=== PATIENT | male | born 1940 | race Caucasian/White ===

== ENCOUNTER 2020-05-19 16:30 | Inpatient (IN) | payer MEDICARE, MEDICAID ==
--- NOTE | 2020-05-19 17:05 | EDM.PDOC ---
<Claudio Be - Last Filed: 05/19/20 17:05> ED HPI GENERAL MEDICAL PROBLEM - General Chief Complaint: Upper Extremity Injury/Pain Stated Complaint: MED[facility] Time Seen by Provider: 05/19/20 16:52 - Related Data Allergies Allergy/AdvReac Type Severity Reaction Status Date / Time No Known Allergies Allergy Verified 05/19/20 16:39 Home Meds: Home Meds NK [No Known Home Meds] 05/19/20 [History] Past Medical History HEENT History: Reports: Hard of Hearing Cardiovascular History: Reports: Hypertension Respiratory History: Reports: Asthma, COPD Musculoskeletal History: Reports: Fracture - Past Surgical History GI Surgical History: Reports: Hernia Repair/Other Social & Family History - Tobacco Use Smoking Status *Q: Current Every Day Smoker Years of Tobacco use: 1 Packs/Tins Daily: 1 - Caffeine Use Caffeine Use: Reports: Coffee - Alcohol Use Days Per Week of Alcohol Use: 7 Number of Drinks Per Day: 4 Total Drinks Per Week: 28 - Recreational Drug Use Recreational Drug Use: No Departure - Departure Disposition: Admitted As Inpatient 68 Clinical Impression: Humeral fracture, Lactic acidosis, Failure to thrive - Discharge Information Referrals: Clark Palm MD [Primary Care Provider] - Forms: ED Department Discharge Sepsis Event Note (ED) - Evaluation Sepsis Screening Result: No Definite Risk <Steffi Jorgensen - Last Filed: 05/19/20 18:18> ED HPI GENERAL MEDICAL PROBLEM - General Source of Information: Reports: Patient, EMS Notes Reviewed, RN, RN Notes Reviewed, Other (Neighbor) History Limitations: Reports: Altered Mental Status, Other (Garbled speech. Last known date was yesterday of normal conversation ) - History of Present Illness INITIAL COMMENTS - FREE TEXT/NARRATIVE: 79 year old male here in ER via EMS. Had unwitnessed fall last with unknown LOC or mechanism of fall. Pt stopped all medications and started drinking and smoking over last 12 months once spouse . Friend had checked on pt each day since fall and was concerned with the change in mentation and inability of pt to ambulate. Was found sitting in chair in living room. Pt has garbled speech and is extremely [place]. H&P is being obtained from friend bedside and what could be obtained from pt. Pt does wince and guard with touching of the L arm and LLE. Unknown LOC. L arm is ecchymotic, blueish-purple and edematous but +1 radial pulse. L shoulder and L chest healed bruising, ribs on left protruding to skin as pt is very skinny, LLE exhibits guarding and garbled speech. Palpation of head does not physically exhibit and outward signs of trauma. However, L cheekbone has a scant healed scab. Will order labs and diagnostics. Onset: Other Onset Date: 05/08/20 Onset Time: 17:00 (Found down in kitchen by friend) Duration: Day(s):, Getting Worse Location: Reports: Chest, Pelvis, Upper Extremity, Left, Lower Extremity, Left Quality: Reports: Other (UTD. Pt garbled speech ) Severity: Severe Improves with: Reports: None Worsens with: Reports: Movement Social & Family History - Living Situation & Occupation Living situation: Reports: (Lives alone.) Occupation: Retired Review of Systems - Review of Systems Review Of Systems: See Below Constitutional: Reports: Weakness, Other (Garbled speech) Eyes: Reports: Other (Small healed scab on left cheekbone) Ears: Reports: Other (Extreme [place]) Nose: Reports: No Symptoms Mouth/Throat: Reports: No Symptoms Respiratory: Reports: No Symptoms Cardiovascular: Reports: No Symptoms GI/Abdominal: Reports: No Symptoms, Other (Unable to obtain ) Genitourinary: Reports: Other (Unable to obtain ) Musculoskeletal: Reports: Shoulder Pain, Arm Pain, Leg Pain, Muscle Pain, Other (Left shoulder, left chest/ribs, left hip, left leg, possible head) Skin: Reports: Bruising, Erythema Neurological: Reports: Confusion, Trouble Speaking, Difficulty Walking, Weakness, Change in Speech Psychiatric: Reports: Confusion ED EXAM, GENERAL - Physical Exam Exam: See Below Exam Limited By: Physical Impairment General Appearance: Lethargic, Mild Distress, Thin, Cachetic Eye Exam: Bilateral Eye: Normal Inspection, PERRL Ears: Hearing Loss, Other (BL ears [place] extreme) Ear Exam: Bilateral Ear: Auricle Normal Nose: Normal Inspection Throat/Mouth: Normal Inspection, Other (Dry) Head: Normocephalic, Other (No evidence of lumps or tender spots) Neck: Normal Inspection, Supple, Non-Tender Respiratory/Chest: No Respiratory Distress, Lungs Clear, Normal Breath Sounds, No Accessory Muscle Use, Other (L chest/ribs healed bruise and ribs protruding ) Cardiovascular: Normal Peripheral Pulses, Regular Rate, Rhythm, No Edema, No Gallop, No JVD, No Murmur, No Rub Peripheral Pulses: 1+: Radial (L), 2+: Radial (R), Dorsalis Pedis (L), Dorsalis Pedis (R) GI/Abdominal: Normal Bowel Sounds, Soft, No Distention (Male) Exam: Deferred Rectal (Males) Exam: Deferred Back Exam: Normal Inspection Extremities: Slow Capillary Refill (L hand ), Joint Swelling (L arm ), Arm Pain, Leg Pain (L leg), Limited Range of Motion Neurological: Confused, Disoriented, Slow to Respond Psychiatric: Flat Affect, Other (Sleepy. Delayed response. Garbled speech) Skin Exam: Warm, Dry, Ecchymosis (Complete L arm and warm. ), Erythema, Increased Warmth, Other Lymphatic: No Adenopathy Course - Radiology Interpretation Free Text/Narrative:: ROS completed. Family friend called EMS due to pt being found down in kitchen. Crawled through window. Labs and diagnostics ordered Xray L shoulder facture. Labs reviewed. Waiting on CT imaging <Juan Berger - Last Filed: 05/19/20 20:11> Course - Vital Signs Last Recorded V/S: Last Vital Signs Temp 36.6 C 05/19/20 16:49 Pulse 87 05/19/20 19:21 Resp 16 05/19/20 17:02 BP 135/83 05/19/20 19:21 Pulse Ox 99 05/19/20 19:21 - Orders/Labs/Meds Orders: Active Orders 24 hr Category Date Time Status EKG Documentation Completion [RC] ASDIRECTED Care 05/19/20 17:03 Active Peripheral IV Care [RC] . DIRECTED Care 05/19/20 17:06 Active Forearm 2V Lt [CR] Stat Exams 05/19/20 17:07 Taken Humerus Lt [CR] Stat Exams 05/19/20 17:07 Taken Lactated Ringers [Ringers, Lactated] 1,000 ml Med 05/19/20 17:15 Active IV BOLUS Sodium Chloride 0.9% [Saline Flush] Med 05/19/20 17:06 Active 10 ml FLUSH ASDIRECTED PRN Peripheral IV Insertion Adult [OM.PC] Urgent Oth 05/19/20 17:06 Ordered EKG 12 Lead [EK] Routine Ther 05/19/20 17:02 Ordered Medication Orders Lactated Ringer's (Ringers, Lactated) 1,000 mls @ 999 mls/hr IV BOLUS BARRON Last Admin: 05/19/20 17:18 Dose: 999 mls/hr Documented by: JENNIFER Sodium Chloride (Saline Flush) 10 ml FLUSH ASDIRECTED PRN PRN Reason: Keep Vein Open Last Admin: 05/19/20 18:09 Dose: 10 ml Documented by: [employer] Labs: Laboratory Tests 05/19/20 05/19/20 05/19/20 Range/Units 17:12 17:12 17:20 WBC 8.5 (4.5-11.0) K/uL RBC 2.97 L (4.30-5.90) M/uL Hgb 11.4 L D (12.0-15.0) g/dL Hct 34.1 L (40.0-54.0) % MCV 115 H (80-98) fL MCH 38 H (27-31) pg MCHC 33 (32-36) % Plt Count 239 (150-400) K/uL Neut % (Auto) 77 H (36-66) % Lymph % (Auto) 12 L (24-44) % Pitt % (Auto) 10 H (2-6) % Eos % (Auto) 0 L (2-4) % Baso % (Auto) 0 (0-1) % PT (9.5-12.0) sec INR (0.80-1.20) Sodium (140-148) mmol/L Potassium (3.6-5.2) mmol/L Chloride (100-108) mmol/L Carbon Dioxide (21-32) mmol/L Anion Gap (5.0-14.0) mmol/L BUN (7-18) mg/dL Creatinine (0.7-1.3) mg/dL Est Cr Clr Drug Dosing mL/min Estimated GFR (MDRD) (>60) BUN/Creatinine Ratio Glucose (74-106) mg/dL Lactic Acid (0.4-2.0) mmol/L Calcium (8.5-10.1) mg/dL Total Bilirubin (0.2-1.0) mg/dL AST (15-37) U/L ALT (12-78) U/L Alkaline Phosphatase (46-116) U/L Ammonia (11-32) mmol/L Creatine Kinase (39-308) U/L Troponin I (0.000-0.056) ng/mL Total Protein (6.4-8.2) g/dL Albumin (3.4-5.0) g/dL Globulin (2.3-3.5) g/dL Albumin/Globulin Ratio (1.2-2.2) Lipase (73-393) U/L Procalcitonin ng/mL TSH, Ultra Sensitive (0.358-3.740) uIU/mL Urine Color (YELLOW) Urine Appearance Clear (CLEAR) Urine pH 6.0 (5.0-8.0) Ur Specific Harmans 1.025 (1.008-1.030) Urine Protein 30 H (NEGATIVE) mg/dL Urine Glucose (UA) Negative (NEGATIVE) mg/dL Urine Ketones 15 H (NEGATIVE) mg/dL Urine Occult Blood Trace-intact H (NEGATIVE) Urine Nitrite Negative (NEGATIVE) Urine Bilirubin Small H (NEGATIVE) Urine Urobilinogen 1.0 (0.2-1.0) EU/dL Ur Leukocyte Esterase Negative (NEGATIVE) Urine RBC 0-5 (0-5) Urine WBC 0-5 (0-5) Ur Epithelial Cells Rare Amorphous Sediment Not seen Urine Bacteria Rare Urine Mucus Rare Urine Opiates Screen Negative (NEGATIVE) Ur Oxycodone Screen Negative (NEGATIVE) Urine Methadone Screen Negative (NEGATIVE) Ur Propoxyphene Screen Negative (NEGATIVE) Ur Barbiturates Screen Negative (NEGATIVE) Ur Tricyclics Screen Negative (NEGATIVE) Ur Phencyclidine Scrn Negative (NEGATIVE) Ur Amphetamine Screen Negative (NEGATIVE) U Methamphetamines Scrn Negative (NEGATIVE) Urine MDMA Screen Negative (NEGATIVE) U Benzodiazepines Scrn Negative (NEGATIVE) U Cocaine Metab Screen Negative (NEGATIVE) U Marijuana (THC) Screen Negative (NEGATIVE) Ethyl Alcohol mg/dL 05/19/20 05/19/20 05/19/20 Range/Units 17:20 17:20 17:20 WBC (4.5-11.0) K/uL RBC (4.30-5.90) M/uL Hgb (12.0-15.0) g/dL Hct (40.0-54.0) % MCV (80-98) fL MCH (27-31) pg MCHC (32-36) % Plt Count (150-400) K/uL Neut % (Auto) (36-66) % Lymph % (Auto) (24-44) % Pitt % (Auto) (2-6) % Eos % (Auto) (2-4) % Baso % (Auto) (0-1) % PT (9.5-12.0) sec INR (0.80-1.20) Sodium 137 L (140-148) mmol/L Potassium 3.8 (3.6-5.2) mmol/L Chloride 99 L (100-108) mmol/L Carbon Dioxide 22 (21-32) mmol/L Anion Gap 19.8 H (5.0-14.0) mmol/L BUN 34 H D (7-18) mg/dL Creatinine 1.0 (0.7-1.3) mg/dL Est Cr Clr Drug Dosing 51.60 mL/min Estimated GFR (MDRD) > 60 (>60) BUN/Creatinine Ratio Not Reportable Glucose 94 (74-106) mg/dL Lactic Acid (0.4-2.0) mmol/L Calcium 9.1 (8.5-10.1) mg/dL Total Bilirubin 1.8 H D (0.2-1.0) mg/dL AST 88 H D (15-37) U/L ALT 81 H (12-78) U/L Alkaline Phosphatase 75 (46-116) U/L Ammonia (11-32) mmol/L Creatine Kinase 968 H (39-308) U/L Troponin I < 0.017 (0.000-0.056) ng/mL Total Protein 6.7 (6.4-8.2) g/dL Albumin 3.3 L (3.4-5.0) g/dL Globulin 3.4 (2.3-3.5) g/dL Albumin/Globulin Ratio 1.0 L (1.2-2.2) Lipase (73-393) U/L Procalcitonin ng/mL TSH, Ultra Sensitive (0.358-3.740) uIU/mL Urine Color (YELLOW) Urine Appearance (CLEAR) Urine pH (5.0-8.0) Ur Specific Harmans (1.008-1.030) Urine Protein (NEGATIVE) mg/dL Urine Glucose (UA) (NEGATIVE) mg/dL Urine Ketones (NEGATIVE) mg/dL Urine Occult Blood (NEGATIVE) Urine Nitrite (NEGATIVE) Urine Bilirubin (NEGATIVE) Urine Urobilinogen (0.2-1.0) EU/dL Ur Leukocyte Esterase (NEGATIVE) Urine RBC (0-5) Urine WBC (0-5) Ur Epithelial Cells Amorphous Sediment Urine Bacteria Urine Mucus Urine Opiates Screen (NEGATIVE) Ur Oxycodone Screen (NEGATIVE) Urine Methadone Screen (NEGATIVE) Ur Propoxyphene Screen (NEGATIVE) Ur Barbiturates Screen (NEGATIVE) Ur Tricyclics Screen (NEGATIVE) Ur Phencyclidine Scrn (NEGATIVE) Ur Amphetamine Screen (NEGATIVE) U Methamphetamines Scrn (NEGATIVE) Urine MDMA Screen (NEGATIVE) U Benzodiazepines Scrn (NEGATIVE) U Cocaine Metab Screen (NEGATIVE) U Marijuana (THC) Screen (NEGATIVE) Ethyl Alcohol 64 mg/dL 05/19/20 05/19/20 05/19/20 Range/Units 17:20 17:20 17:20 WBC (4.5-11.0) K/uL RBC (4.30-5.90) M/uL Hgb (12.0-15.0) g/dL Hct (40.0-54.0) % MCV (80-98) fL MCH (27-31) pg MCHC (32-36) % Plt Count (150-400) K/uL Neut % (Auto) (36-66) % Lymph % (Auto) (24-44) % Pitt % (Auto) (2-6) % Eos % (Auto) (2-4) % Baso % (Auto) (0-1) % PT (9.5-12.0) sec INR (0.80-1.20) Sodium (140-148) mmol/L Potassium (3.6-5.2) mmol/L Chloride (100-108) mmol/L Carbon Dioxide (21-32) mmol/L Anion Gap (5.0-14.0) mmol/L BUN (7-18) mg/dL Creatinine (0.7-1.3) mg/dL Est Cr Clr Drug Dosing mL/min Estimated GFR (MDRD) (>60) BUN/Creatinine Ratio Glucose (74-106) mg/dL Lactic Acid 4.4 H (0.4-2.0) mmol/L Calcium (8.5-10.1) mg/dL Total Bilirubin (0.2-1.0) mg/dL AST (15-37) U/L ALT (12-78) U/L Alkaline Phosphatase (46-116) U/L Ammonia (11-32) mmol/L Creatine Kinase (39-308) U/L Troponin I (0.000-0.056) ng/mL Total Protein (6.4-8.2) g/dL Albumin (3.4-5.0) g/dL Globulin (2.3-3.5) g/dL Albumin/Globulin Ratio (1.2-2.2) Lipase 265 (73-393) U/L Procalcitonin 0.27 ng/mL TSH, Ultra Sensitive (0.358-3.740) uIU/mL Urine Color (YELLOW) Urine Appearance (CLEAR) Urine pH (5.0-8.0) Ur Specific Harmans (1.008-1.030) Urine Protein (NEGATIVE) mg/dL Urine Glucose (UA) (NEGATIVE) mg/dL Urine Ketones (NEGATIVE) mg/dL Urine Occult Blood (NEGATIVE) Urine Nitrite (NEGATIVE) Urine Bilirubin (NEGATIVE) Urine Urobilinogen (0.2-1.0) EU/dL Ur Leukocyte Esterase (NEGATIVE) Urine RBC (0-5) Urine WBC (0-5) Ur Epithelial Cells Amorphous Sediment Urine Bacteria Urine Mucus Urine Opiates Screen (NEGATIVE) Ur Oxycodone Screen (NEGATIVE) Urine Methadone Screen (NEGATIVE) Ur Propoxyphene Screen (NEGATIVE) Ur Barbiturates Screen (NEGATIVE) Ur Tricyclics Screen (NEGATIVE) Ur Phencyclidine Scrn (NEGATIVE) Ur Amphetamine Screen (NEGATIVE) U Methamphetamines Scrn (NEGATIVE) Urine MDMA Screen (NEGATIVE) U Benzodiazepines Scrn (NEGATIVE) U Cocaine Metab Screen (NEGATIVE) U Marijuana (THC) Screen (NEGATIVE) Ethyl Alcohol mg/dL 05/19/20 05/19/20 05/19/20 Range/Units 17:20 18:00 18:14 WBC (4.5-11.0) K/uL RBC (4.30-5.90) M/uL Hgb (12.0-15.0) g/dL Hct (40.0-54.0) % MCV (80-98) fL MCH (27-31) pg MCHC (32-36) % Plt Count (150-400) K/uL Neut % (Auto) (36-66) % Lymph % (Auto) (24-44) % Pitt % (Auto) (2-6) % Eos % (Auto) (2-4) % Baso % (Auto) (0-1) % PT 10.1 (9.5-12.0) sec INR 0.93 (0.80-1.20) Sodium (140-148) mmol/L Potassium (3.6-5.2) mmol/L Chloride (100-108) mmol/L Carbon Dioxide (21-32) mmol/L Anion Gap (5.0-14.0) mmol/L BUN (7-18) mg/dL Creatinine (0.7-1.3) mg/dL Est Cr Clr Drug Dosing mL/min Estimated GFR (MDRD) (>60) BUN/Creatinine Ratio Glucose (74-106) mg/dL Lactic Acid (0.4-2.0) mmol/L Calcium (8.5-10.1) mg/dL Total Bilirubin (0.2-1.0) mg/dL AST (15-37) U/L ALT (12-78) U/L Alkaline Phosphatase (46-116) U/L Ammonia < 10 L (11-32) mmol/L Creatine Kinase (39-308) U/L Troponin I (0.000-0.056) ng/mL Total Protein (6.4-8.2) g/dL Albumin (3.4-5.0) g/dL Globulin (2.3-3.5) g/dL Albumin/Globulin Ratio (1.2-2.2) Lipase (73-393) U/L Procalcitonin ng/mL TSH, Ultra Sensitive 2.219 (0.358-3.740) uIU/mL Urine Color (YELLOW) Urine Appearance (CLEAR) Urine pH (5.0-8.0) Ur Specific Harmans (1.008-1.030) Urine Protein (NEGATIVE) mg/dL Urine Glucose (UA) (NEGATIVE) mg/dL Urine Ketones (NEGATIVE) mg/dL Urine Occult Blood (NEGATIVE) Urine Nitrite (NEGATIVE) Urine Bilirubin (NEGATIVE) Urine Urobilinogen (0.2-1.0) EU/dL Ur Leukocyte Esterase (NEGATIVE) Urine RBC (0-5) Urine WBC (0-5) Ur Epithelial Cells Amorphous Sediment Urine Bacteria Urine Mucus Urine Opiates Screen (NEGATIVE) Ur Oxycodone Screen (NEGATIVE) Urine Methadone Screen (NEGATIVE) Ur Propoxyphene Screen (NEGATIVE) Ur Barbiturates Screen (NEGATIVE) Ur Tricyclics Screen (NEGATIVE) Ur Phencyclidine Scrn (NEGATIVE) Ur Amphetamine Screen (NEGATIVE) U Methamphetamines Scrn (NEGATIVE) Urine MDMA Screen (NEGATIVE) U Benzodiazepines Scrn (NEGATIVE) U Cocaine Metab Screen (NEGATIVE) U Marijuana (THC) Screen (NEGATIVE) Ethyl Alcohol mg/dL Meds: Medications Generic Name Dose Route Start Last Admin Trade Name Freq PRN Reason Stop Dose Admin Lactated Ringer's 1,000 mls @ 999 mls/hr 05/19/20 17:15 05/19/20 17:18 Ringers, Lactated IV 999 mls/hr BOLUS BARRON Administration Sodium Chloride 10 ml 05/19/20 17:06 05/19/20 18:09 Saline Flush FLUSH 10 ml ASDIRECTED PRN Administration Keep Vein Open Discontinued Medications Generic Name Dose Route Start Last Admin Trade Name Freq PRN Reason Stop Dose Admin Sodium Chloride 80 mls @ 3 mls/sec 05/19/20 17:15 05/19/20 18:09 Normal Saline IV 05/19/20 17:16 3 mls/sec ASDIRECTED BARRON Administration Iopamidol 100 ml 05/19/20 17:15 05/19/20 18:09 Isovue-300 (61%) IV 05/19/20 17:16 100 ml . DIRECTED BARRON Administration Sodium Chloride 10 ml 05/19/20 17:12 05/19/20 19:34 Saline Flush FLUSH 05/19/20 17:13 Not Given ONETIME ONE - Re-Assessments/Exams Free Text/Narrative Re-Assessment/Exam: 05/19/20 20:10 Resumed patient care from officer. He recommended follow-up on the CT result. No acute abnormalities. Case was discussed with Dr. zhong and he accepted admission for further management. Patient agrees with the plan. Stable for admission. Departure - Departure Time of Disposition: 19:44 Condition: Fair Sepsis Event Note (ED) - Focused Exam Vital Signs: Vital Signs Temp Pulse Resp BP Pulse Ox 05/19/20 19:21 87 135/83 99 05/19/20 18:12 88 155/69 H 99 05/19/20 17:02 113 H 16 123/82 99 05/19/20 16:49 36.6 C 102 H 16 158/100 H 100 05/19/20 16:37 36.6 C 102 H 16 158/100 H 100
[2020-05-19] MEDS ORDERED: Sodium Chloride 0.9% 10 ML Syringe FLUSH PRN (17:06)
[2020-05-19] MEDS ORDERED: Sodium Chloride 0.9% 10 ML Syringe FLUSH ONE (17:12)
[2020-05-19] MEDS ORDERED: Lactated Ringers 1,000 ML IV SCH (17:15)
[2020-05-19] MEDS ORDERED: Iopamidol 612 MG/ML 100 ML Bottle IV SCH (17:15)
[2020-05-19] MEDS ORDERED: Sodium Chloride 0.9% 80 ML IV SCH (17:15)
--- NOTE | 2020-05-19 19:25 | CRLCT ---
INDICATION: Trauma TECHNIQUE: CT head without contrast. COMPARISON: None FINDINGS: CSF spaces: Within normal limits for age. Brain parenchyma: The downing-white differentiation is normal. No sign of mass, hemorrhage, or midline shift. Periventricular white matter changes consistent chronic microvascular disease. Diffuse volume loss. Left basal ganglia remote lacunar infarct. Skull base and calvarium: The visualized paranasal sinuses and mastoid air cells demonstrate no acute or significant findings. The visualized orbits are grossly unremarkable. No skull fractures. IMPRESSION: Atraumatic appearance to the brain. Periventricular white matter changes consistent with chronic microvascular disease. Remote lacunar infarct left basal ganglia. Dictated by Gerald Santos MD @ 05/19/2020 7:23:30 PM Please note that all CT scans at this facility use dose modulation, iterative reconstruction, and/or weight-based dosing when appropriate to reduce radiation dose to as low as reasonably achievable. Dictated by: Gerald Santos MD @ 05/19/2020 19:23:33 (Electronically Signed)
--- NOTE | 2020-05-19 19:31 | CRLCT ---
INDICATION: Trauma TECHNIQUE: CT chest, abdomen and pelvis acquired with IV contrast. 100 cc Isovue-300 COMPARISON: CT scan chest 09/22/2015 FINDINGS: Chest: Cardiovascular structures: Heart size is normal. Thoracic aorta and main pulmonary artery are normal in caliber. Mediastinum and herve: No mass or adenopathy. Lungs: Sub centimeter calcified benign nodule left lower lobe. Pleura and pericardium: No effusions. Chest wall and axilla: No mass or adenopathy. Bones: Displaced fracture left humeral neck possibly chronic. Extensive kyphosis and degenerative changes thoracic spine. Abdomen and Pelvis: Liver: Unremarkable. Spleen: Unremarkable. Pancreas: Unremarkable. Gallbladder and bile ducts: Unremarkable. Kidneys: Nonobstructing 6 millimeter calculus measures on left kidney. Adrenal glands: Unremarkable. GI tract: Unremarkable. Appendix is normal. Vascular structures: Unremarkable. Lymph nodes: Unremarkable. Miscellaneous: Unremarkable. No free air or significant free fluid. Pelvic Organs: Unremarkable. Bones: Degenerative changes lumbar spine. IMPRESSION: Left humeral neck fracture. Correlate with pain as this may represent remote trauma. The remainder of the exam is atraumatic in appearance. Dictated by Gerald Santos MD @ 05/19/2020 7:30:05 PM Please note that all CT scans at this facility use dose modulation, iterative reconstruction, and/or weight-based dosing when appropriate to reduce radiation dose to as low as reasonably achievable. Dictated by: Gerald Santos MD @ 05/19/2020 19:30:10 (Electronically Signed)
[2020-05-19] MEDS: Acetaminophen 325 MG Tab PO PRN (22:32)
[2020-05-19] MEDS ORDERED: Albuterol/Ipratropium 3.0-0.5 MG/3 ML Neb Soln NEB PRN (22:54)
[2020-05-19] MEDS ORDERED: Simvastatin 20 MG Tab PO ONE (22:54)
--- NOTE | 2020-05-20 01:25 | HP ---
IDENTIFYING DATA: Santosh Sharpe is a 79-year-old male from [place], [place]. CHIEF COMPLAINT: Fall, weakness, left upper extremity injury. HISTORY OF PRESENT ILLNESS: This elderly gentleman who lives independently and alone is periodically checked by acquaintances living nearby. He was noted to have an unwitnessed fall 4 to 5 days ago and was assisted up. He had proximal left arm pain and with followup evaluation by his contact was found to have weakness, inability to ambulate, and confusion with garbled speech today. Therefore, he was delivered to the emergency room by ambulance services and was admitted for observation and further evaluation. Santosh has notable confusion and disorientation today, unable to provide factual information, though records indicate he had resided in [place] and sought routine medical care at [facility] in [place]. However, his hypertensive and chronic respiratory medications had been discontinued sometime within the last 2 years. On relocation to [place], he failed to establish followup with a local caregiver and states he has not seen a provider in an unspecified period of time. He does note that his 1 to 2 years ago of malignancy, though he is unable to provide further specifics. Since that time he has lived alone. He reports an adult son lives in [facility], though does not have daily contact. He states he eats 1 meal daily, does do his own grocery shopping, though admits to poor intake, frequently eating snacks and prepared meals. PAST SURGICAL HISTORY: He denies previous surgeries. Records indicate a history of inguinal hernia surgery. PAST MEDICAL HISTORY: Records report a history of hypertension, hyperlipidemia, and chronic obstructive pulmonary disease. HABITS: Ongoing tobacco use. The patient is unable to quantify his volume of consumption. Caffeine intake daily with coffee use. Denies use of soft drinks. Records suggest a history of chronic alcohol use. He does admit to regular alcohol use primarily in the form of beer, though again he is unable to quantify the amount of alcohol consumed routinely. He has not received annual influenza vaccines. Pneumococcal vaccine series is completed. Last Tdap provided in 2011, with Zostavax also administered in 2012. ALLERGIES: NONE NOTED. MEDICATIONS: None at the current time. Records indicate previous use of diltiazem extended release, Dyazide for hypertensive management as well as maintenance Advair Diskus and DuoNeb rescue inhaled therapies, in addition to simvastatin for hyperlipidemia. 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 He reports he has not recently been driving. No regular oversight from family. Neighbors occasionally check on his status. FAMILY HISTORY: Unable to confirm factual information. REVIEW OF SYSTEMS: NEUROLOGIC: Does admit to memory loss and confusion. Denies a history of strokes or seizures. No history of glaucoma. Denies cataracts. Admits to chronic bilateral hearing loss without use of hearing aids and possession of glasses, though unworn. CARDIAC: History of hypertension. Denies a history of ischemic heart disease, NV, palpitations, chest pain or chronic shortness of breath. ENDOCRINE: No history of diabetes by patient report or record review. RESPIRATORY: Chronic obstructive pulmonary disease indicated by records. The patient denies cough, sputum production, or recent acute respiratory infections. Ongoing tobacco use is admitted. GI: Intermittent abdominal pain. Denies a history of hepatitis or gallbladder disease. No emesis, constipation, or melena. : Occasionally rises at nighttime to void. Denies incontinence. No evidence of chronic renal insufficiency by previous records. MUSCULOSKELETAL: Proximal left arm pain. Reports chronic bilateral lower extremity pain. Denies falls, though this is in contrast to reported history from neighbors. PHYSICAL EXAMINATION: GENERAL: Appearance is that of a thin, weakened, elderly male, strong smell of tobacco was present when seen in the hospital bed. Notes proximal left arm pain. VITAL SIGNS: Temperature 36.6 degrees centigrade, pulse 87, respiratory rate 16, blood pressure 135/83, O2 sats 99% on room air. HEENT: Hearing is markedly impaired. No hearing aids are worn. Canals are normal in appearance. Pupils are reactive to light. Sclerae anicteric. No nasal congestion. Poor dental hygiene. Dry oral mucosa in appearance. Minimal abrasion at the left cheek. No other evidence of recent facial or cranial injury. NECK: Brisk carotid pulses. No bruits, JVD, or adenopathy. LUNGS: Mild expiratory rhonchi bilaterally. Symmetrical aeration. No retractions. He has significant ecchymosis at the proximal left humeral region with extension to the left lateral hemithorax. HEART: Regular without murmurs or gallops noted. Controlled rate. ABDOMEN: Thin, soft. No organomegaly. No guarding, rebound, or referred pain. Active sounds are noted. No CVA pain. He has good femoral pulses. EXTREMITIES: Left arm is held splinted to his trunk. Deformity at the proximal humeral region. Radial pulses strong. Hand grasp is symmetrical. He has thin lower extremities. Posterior tibial and dorsal pedal pulses are intact. No open skin lesions evident. Non- jaundiced. LABORATORY DATA: On admission; WBC 8.5, hemoglobin mildly depressed at 11.4, MCV elevated at 115, platelet count 239,000, 77 neutrophils, 12 lymphocytes, 10 monos. General chemistries include a sodium of 137, potassium 3.8, BUN elevated at 34, creatinine 1, GFR greater than 60, glucose 94, total bilirubin 1.8, AST 88, ALT 81, alkaline phosphatase 85. Urine drug screen negative on dipstick. Urinalysis positive ketonuria, small amount of bilirubin, negative dipstick otherwise noted. Creatine kinase 968. Troponin less than 0.017. Ethyl alcohol level 0.064. Lactic acid 4.4, lipase 265. Procalcitonin 0.27. INR is within normal range at 0.93. Ammonia less than 10. TSH 2.22. CT imaging of the head reveals probable old established lacunar infarct and microvascular changes without acute skull or intracranial injury. CT of the chest unremarkable for intrathoracic injury. X-ray does confirm a displaced proximal humeral fracture of the left shoulder, with forearm being unremarkable. IMPRESSION: 1. Unwitnessed fall approximately 5 days ago with resultant displaced proximal left humeral fracture. 2. General weakness and malnourished state in a vulnerable adult. 3. Confusion, consider acute delirium secondary to malnourishment and recent injury versus chronic presentation of microvascular intracranial changes versus alcohol-induced dementia. 4. Chronic alcohol use. 5. Essential hypertension by record review. Untreated at present. 6. Chronic obstructive pulmonary disease by record review. Untreated at present. 7. Ongoing tobacco use. 8. Chronic hearing loss without use of hearing aids. PLAN: The patient is unable to care for self given his chronic and acute health concerns, therefore was admitted to inpatient. We will provide IV fluids to restore appropriate hydration. We will provide shoulder sling and swathe to immobilize his left proximal humeral fracture and provide Tylenol and ice packs for symptom management. Orthopedic consultation is requested to provide assistance with conservative management. We will request PT assessment for reasons of generalized weakness. Watch for signs of developing alcohol withdrawal. Re-establish hypertensive treatment with diltiazem, hyperlipidemic treatment with simvastatin, and management of his chronic obstructive pulmonary disease with scheduled Advair inhaled therapies. We will provide nicotine transdermal patch if necessary for nicotine withdrawal. Request Discharge Planning involve in care, likely will require transfer to retirement setting if cognitive impairment fails to show improvement. Long-term placement in a supervised living arrangement may be necessary. If with pentecostal to improve nutritional state and rehydration, with abstinence from use of alcohol, shows pentecostal of cognitive function to allow independent performance of ADLs in a reliable manner, might be able to return home with home care assistance and monitoring. Low-sodium diet to be provided for patient. Follow up labs including CBC and metabolic panel are requested. Allow activity with standby assistance and prohibit unrestricted, unsupervised activities. Full code status will be maintained with patient unable at the present time to make determination of his healthcare directive. Gualberto Santana MD /[id number]
[2020-05-20] MEDS: Acetaminophen 325 MG Tab PO PRN ×2 (03:31→08:04)
[2020-05-20] MEDS: Sodium Chloride 0.9% 1,000 ML IV SCH ×2 (04:32→11:36)
--- NOTE | 2020-05-20 06:05 | PN ---
DATE OF SERVICE: 05/20/2020 SUBJECTIVE: 79-year-old male living independently, was admitted yesterday evening with weakness, confusion, and recent fall and a proximal left humeral fracture. Through the night, he has slept intermittently, voiding with good regularity. IV fluids continued to run in an effort to resolve his presenting state of dehydration. He has had no evidence of visceral organ bleed. Denying abdominal pain, chest pain or evidence of hematuria, melena, or hematochezia. Taking sips of water readily. No acute respiratory distress noted. He has had proximal arm pain managed with immobilization and use of acetaminophen. OBJECTIVE: GENERAL: Currently resting comfortably. VITAL SIGNS: Temperature 35.2 degrees centigrade, pulse rate 63, O2 saturation is 98% on room air with respiratory rate of 18 and blood pressure 128/49. LABORATORY DATA: Labs this morning, hemoglobin with an IV fluid infusion to restore appropriate hydration has shown interval fall to 8.8. WBC 6.9, platelet count 226,000. COVID-19 results are negative. Chemistries including electrolytes and renal functions are pending this morning. IMPRESSION AND PLAN: 1. Fall with proximal left humeral fracture. Continue with conservative management. Assist with performance of ADLs. Orthopedic involvement with supervision is requested today. Given his restrictions on physical activity, will not likely be able to return home following hospital discharge and will anticipate shelter placement for recuperative stay, potentially long-term stay with confusion noted. 2. Chronic obstructive pulmonary disease with ongoing tobacco use. Currently holding tobacco use. Advair maintenance inhaled therapies have been renewed. No acute respiratory distress is noted. 3. Hypertension. The patient had discontinued medication 1 to 2 years ago as he failed to follow up for routine medical care. Antihypertensive therapies have been resumed with vital signs currently stable. Review general chemistries on completion of labs today. 4. Confusion. Consider multi-infarct dementia with multi-infarct changes evident on admission CT scan. Additionally, may be secondary to reports of chronic heavy alcohol use versus acute delirium of malnourishment and dehydration. We will continue to monitor and watch for signs of improvement with overall improvement in general physical health. 5. Pronounced hearing deficit. The patient does not have hearing aids. We will need to investigate acquisition of hearing aids in an effort to improve his communication with acquaintances and staff at a later date. Gualberto Santana MD /[id number]
[2020-05-20] MEDS: Fluticasone-Salmeterol 232-14 MCG Powder Inhalent INH SCH ×2 (09:08→21:18)
[2020-05-20] MEDS: Ferrous Sulfate 325 MG Tab PO SCH ×2 (09:17→16:53)
[2020-05-20] MEDS: Pantoprazole 40 MG Tab.CR PO SCH (10:37)
[2020-05-20] MEDS: Diltiazem 120 MG Cap.CD PO SCH (10:46)
--- NOTE | 2020-05-20 12:40 | CRLCT ---
INDICATION: Expressive aphasia. Left facial weakness. TECHNIQUE: Head CT without contrast. COMPARISON: May 19, 2020. FINDINGS: CSF spaces: Stable ventriculomegaly. Brain parenchyma and extra-axial spaces: There are nonspecific low attenuation white matter changes consistent with chronic microvascular disease. There are chronic lacunar infarcts. No sign of mass, hemorrhage, or midline shift. Skull base and calvarium: The visualized paranasal sinuses and mastoid air cells demonstrate no acute or significant findings. The visualized orbits are grossly unremarkable. No skull fractures. IMPRESSION: No sign of acute CVA, hemorrhage, or mass effect. Stable ventriculomegaly suggesting the possibility of normal pressure hydrocephalus.Overall, no significant change from the prior exam. Dictated by Garry Monsivais MD @ 05/20/2020 12:39:40 PM Please note that all CT scans at this facility use dose modulation, iterative reconstruction, and/or weight-based dosing when appropriate to reduce radiation dose to as low as reasonably achievable. Dictated by: Garry Monsivais MD @ 05/20/2020 12:39:47 (Electronically Signed)
[2020-05-20] MEDS ORDERED: Sodium Chloride 0.9% 1,000 ML IV SCH (13:30)
[2020-05-20] MEDS ORDERED: Haloperidol 1 MG Tab PO PRN (13:34)
--- NOTE | 2020-05-20 13:34 | PCM.PN ---
- General Info Date of Service: 05/20/20 Subjective Update: Mr. Sharpe is a 79-year-old gentleman who was admitted through the emergency department last night after he fell at home 5 days previously resulting in a proximal fracture of his left humerus. He is confused and unable to provide a meaningful history concerning recent symptoms or review of systems. Nursing staff noted difficulty with speech as well as swallowing and left facial weakness. Follow-up CT scan of the head shows no acute or new findings since l night. - Patient Data Vitals - Most Recent: Last Vital Signs Temp 97.3 F 05/20/20 10:47 Pulse 59 L 05/20/20 10:47 Resp 16 05/20/20 10:47 BP 178/58 H 05/20/20 10:47 Pulse Ox 99 05/20/20 10:47 Weight - Most Recent: 123 lb 2.015 oz I&O - Last 24 Hours: Intake & Output 05/19/20 05/20/20 05/20/20 22:59 06:59 14:59 Intake Total 888 Output Total 200 200 150 Balance -200 688 -150 Lab Results Last 24 Hours: Laboratory Results - last 24 hr 05/19/20 05/19/20 05/19/20 Range/Units 17:12 17:12 17:20 WBC 8.5 (4.5-11.0) K/uL RBC 2.97 L (4.30-5.90) M/uL Hgb 11.4 L D (12.0-15.0) g/dL Hct 34.1 L (40.0-54.0) % MCV 115 H (80-98) fL MCH 38 H (27-31) pg MCHC 33 (32-36) % Plt Count 239 (150-400) K/uL Neut % (Auto) 77 H (36-66) % Lymph % (Auto) 12 L (24-44) % [place] % (Auto) 10 H (2-6) % Eos % (Auto) 0 L (2-4) % Baso % (Auto) 0 (0-1) % PT (9.5-12.0) sec INR (0.80-1.20) Sodium (140-148) mmol/L Potassium (3.6-5.2) mmol/L Chloride (100-108) mmol/L Carbon Dioxide (21-32) mmol/L Anion Gap (5.0-14.0) mmol/L BUN (7-18) mg/dL Creatinine (0.7-1.3) mg/dL Est Cr Clr Drug Dosing mL/min Estimated GFR (MDRD) (>60) BUN/Creatinine Ratio Glucose (74-106) mg/dL Lactic Acid (0.4-2.0) mmol/L Calcium (8.5-10.1) mg/dL Total Bilirubin (0.2-1.0) mg/dL AST (15-37) U/L ALT (12-78) U/L Alkaline Phosphatase (46-116) U/L Ammonia (11-32) mmol/L Creatine Kinase (39-308) U/L Troponin I (0.000-0.056) ng/mL Total Protein (6.4-8.2) g/dL Albumin (3.4-5.0) g/dL Globulin (2.3-3.5) g/dL Albumin/Globulin Ratio (1.2-2.2) Lipase (73-393) U/L Procalcitonin ng/mL TSH, Ultra Sensitive (0.358-3.740) uIU/mL Urine Color (YELLOW) Urine Appearance Clear (CLEAR) Urine pH 6.0 (5.0-8.0) Ur Specific [place] 1.025 (1.008-1.030) Urine Protein 30 H (NEGATIVE) mg/dL Urine Glucose (UA) Negative (NEGATIVE) mg/dL Urine Ketones 15 H (NEGATIVE) mg/dL Urine Occult Blood Trace-intact H (NEGATIVE) Urine Nitrite Negative (NEGATIVE) Urine Bilirubin Small H (NEGATIVE) Urine Urobilinogen 1.0 (0.2-1.0) EU/dL Ur Leukocyte Esterase Negative (NEGATIVE) Urine RBC 0-5 (0-5) Urine WBC 0-5 (0-5) Ur Epithelial Cells Rare Amorphous Sediment Not seen Urine Bacteria Rare Urine Mucus Rare Urine Opiates Screen Negative (NEGATIVE) Ur Oxycodone Screen Negative (NEGATIVE) Urine Methadone Screen Negative (NEGATIVE) Ur Propoxyphene Screen Negative (NEGATIVE) Ur Barbiturates Screen Negative (NEGATIVE) Ur Tricyclics Screen Negative (NEGATIVE) Ur Phencyclidine Scrn Negative (NEGATIVE) Ur Amphetamine Screen Negative (NEGATIVE) U Methamphetamines Scrn Negative (NEGATIVE) Urine MDMA Screen Negative (NEGATIVE) U Benzodiazepines Scrn Negative (NEGATIVE) U Cocaine Metab Screen Negative (NEGATIVE) U Marijuana (THC) Screen Negative (NEGATIVE) Ethyl Alcohol mg/dL SARS Virus RNA (PCR) (NEGATIVE) 05/19/20 05/19/20 05/19/20 Range/Units 17:20 17:20 17:20 WBC (4.5-11.0) K/uL RBC (4.30-5.90) M/uL Hgb (12.0-15.0) g/dL Hct (40.0-54.0) % MCV (80-98) fL MCH (27-31) pg MCHC (32-36) % Plt Count (150-400) K/uL Neut % (Auto) (36-66) % Lymph % (Auto) (24-44) % [place] % (Auto) (2-6) % Eos % (Auto) (2-4) % Baso % (Auto) (0-1) % PT (9.5-12.0) sec INR (0.80-1.20) Sodium 137 L (140-148) mmol/L Potassium 3.8 (3.6-5.2) mmol/L Chloride 99 L (100-108) mmol/L Carbon Dioxide 22 (21-32) mmol/L Anion Gap 19.8 H (5.0-14.0) mmol/L BUN 34 H D (7-18) mg/dL Creatinine 1.0 (0.7-1.3) mg/dL Est Cr Clr Drug Dosing 51.60 mL/min Estimated GFR (MDRD) > 60 (>60) BUN/Creatinine Ratio Not Reportable Glucose 94 (74-106) mg/dL Lactic Acid (0.4-2.0) mmol/L Calcium 9.1 (8.5-10.1) mg/dL Total Bilirubin 1.8 H D (0.2-1.0) mg/dL AST 88 H D (15-37) U/L ALT 81 H (12-78) U/L Alkaline Phosphatase 75 (46-116) U/L Ammonia (11-32) mmol/L Creatine Kinase 968 H (39-308) U/L Troponin I < 0.017 (0.000-0.056) ng/mL Total Protein 6.7 (6.4-8.2) g/dL Albumin 3.3 L (3.4-5.0) g/dL Globulin 3.4 (2.3-3.5) g/dL Albumin/Globulin Ratio 1.0 L (1.2-2.2) Lipase (73-393) U/L Procalcitonin ng/mL TSH, Ultra Sensitive (0.358-3.740) uIU/mL Urine Color (YELLOW) Urine Appearance (CLEAR) Urine pH (5.0-8.0) Ur Specific [place] (1.008-1.030) Urine Protein (NEGATIVE) mg/dL Urine Glucose (UA) (NEGATIVE) mg/dL Urine Ketones (NEGATIVE) mg/dL Urine Occult Blood (NEGATIVE) Urine Nitrite (NEGATIVE) Urine Bilirubin (NEGATIVE) Urine Urobilinogen (0.2-1.0) EU/dL Ur Leukocyte Esterase (NEGATIVE) Urine RBC (0-5) Urine WBC (0-5) Ur Epithelial Cells Amorphous Sediment Urine Bacteria Urine Mucus Urine Opiates Screen (NEGATIVE) Ur Oxycodone Screen (NEGATIVE) Urine Methadone Screen (NEGATIVE) Ur Propoxyphene Screen (NEGATIVE) Ur Barbiturates Screen (NEGATIVE) Ur Tricyclics Screen (NEGATIVE) Ur Phencyclidine Scrn (NEGATIVE) Ur Amphetamine Screen (NEGATIVE) U Methamphetamines Scrn (NEGATIVE) Urine MDMA Screen (NEGATIVE) U Benzodiazepines Scrn (NEGATIVE) U Cocaine Metab Screen (NEGATIVE) U Marijuana (THC) Screen (NEGATIVE) Ethyl Alcohol 64 mg/dL SARS Virus RNA (PCR) (NEGATIVE) 05/19/20 05/19/20 05/19/20 Range/Units 17:20 17:20 17:20 WBC (4.5-11.0) K/uL RBC (4.30-5.90) M/uL Hgb (12.0-15.0) g/dL Hct (40.0-54.0) % MCV (80-98) fL MCH (27-31) pg MCHC (32-36) % Plt Count (150-400) K/uL Neut % (Auto) (36-66) % Lymph % (Auto) (24-44) % [place] % (Auto) (2-6) % Eos % (Auto) (2-4) % Baso % (Auto) (0-1) % PT (9.5-12.0) sec INR (0.80-1.20) Sodium (140-148) mmol/L Potassium (3.6-5.2) mmol/L Chloride (100-108) mmol/L Carbon Dioxide (21-32) mmol/L Anion Gap (5.0-14.0) mmol/L BUN (7-18) mg/dL Creatinine (0.7-1.3) mg/dL Est Cr Clr Drug Dosing mL/min Estimated GFR (MDRD) (>60) BUN/Creatinine Ratio Glucose (74-106) mg/dL Lactic Acid 4.4 H (0.4-2.0) mmol/L Calcium (8.5-10.1) mg/dL Total Bilirubin (0.2-1.0) mg/dL AST (15-37) U/L ALT (12-78) U/L Alkaline Phosphatase (46-116) U/L Ammonia (11-32) mmol/L Creatine Kinase (39-308) U/L Troponin I (0.000-0.056) ng/mL Total Protein (6.4-8.2) g/dL Albumin (3.4-5.0) g/dL Globulin (2.3-3.5) g/dL Albumin/Globulin Ratio (1.2-2.2) Lipase 265 (73-393) U/L Procalcitonin 0.27 ng/mL TSH, Ultra Sensitive (0.358-3.740) uIU/mL Urine Color (YELLOW) Urine Appearance (CLEAR) Urine pH (5.0-8.0) Ur Specific [place] (1.008-1.030) Urine Protein (NEGATIVE) mg/dL Urine Glucose (UA) (NEGATIVE) mg/dL Urine Ketones (NEGATIVE) mg/dL Urine Occult Blood (NEGATIVE) Urine Nitrite (NEGATIVE) Urine Bilirubin (NEGATIVE) Urine Urobilinogen (0.2-1.0) EU/dL Ur Leukocyte Esterase (NEGATIVE) Urine RBC (0-5) Urine WBC (0-5) Ur Epithelial Cells Amorphous Sediment Urine Bacteria Urine Mucus Urine Opiates Screen (NEGATIVE) Ur Oxycodone Screen (NEGATIVE) Urine Methadone Screen (NEGATIVE) Ur Propoxyphene Screen (NEGATIVE) Ur Barbiturates Screen (NEGATIVE) Ur Tricyclics Screen (NEGATIVE) Ur Phencyclidine Scrn (NEGATIVE) Ur Amphetamine Screen (NEGATIVE) U Methamphetamines Scrn (NEGATIVE) Urine MDMA Screen (NEGATIVE) U Benzodiazepines Scrn (NEGATIVE) U Cocaine Metab Screen (NEGATIVE) U Marijuana (THC) Screen (NEGATIVE) Ethyl Alcohol mg/dL SARS Virus RNA (PCR) (NEGATIVE) 05/19/20 05/19/20 05/19/20 Range/Units 17:20 18:00 18:14 WBC (4.5-11.0) K/uL RBC (4.30-5.90) M/uL Hgb (12.0-15.0) g/dL Hct (40.0-54.0) % MCV (80-98) fL MCH (27-31) pg MCHC (32-36) % Plt Count (150-400) K/uL Neut % (Auto) (36-66) % Lymph % (Auto) (24-44) % [place] % (Auto) (2-6) % Eos % (Auto) (2-4) % Baso % (Auto) (0-1) % PT 10.1 (9.5-12.0) sec INR 0.93 (0.80-1.20) Sodium (140-148) mmol/L Potassium (3.6-5.2) mmol/L Chloride (100-108) mmol/L Carbon Dioxide (21-32) mmol/L Anion Gap (5.0-14.0) mmol/L BUN (7-18) mg/dL Creatinine (0.7-1.3) mg/dL Est Cr Clr Drug Dosing mL/min Estimated GFR (MDRD) (>60) BUN/Creatinine Ratio Glucose (74-106) mg/dL Lactic Acid (0.4-2.0) mmol/L Calcium (8.5-10.1) mg/dL Total Bilirubin (0.2-1.0) mg/dL AST (15-37) U/L ALT (12-78) U/L Alkaline Phosphatase (46-116) U/L Ammonia < 10 L (11-32) mmol/L Creatine Kinase (39-308) U/L Troponin I (0.000-0.056) ng/mL Total Protein (6.4-8.2) g/dL Albumin (3.4-5.0) g/dL Globulin (2.3-3.5) g/dL Albumin/Globulin Ratio (1.2-2.2) Lipase (73-393) U/L Procalcitonin ng/mL TSH, Ultra Sensitive 2.219 (0.358-3.740) uIU/mL Urine Color (YELLOW) Urine Appearance (CLEAR) Urine pH (5.0-8.0) Ur Specific [place] (1.008-1.030) Urine Protein (NEGATIVE) mg/dL Urine Glucose (UA) (NEGATIVE) mg/dL Urine Ketones (NEGATIVE) mg/dL Urine Occult Blood (NEGATIVE) Urine Nitrite (NEGATIVE) Urine Bilirubin (NEGATIVE) Urine Urobilinogen (0.2-1.0) EU/dL Ur Leukocyte Esterase (NEGATIVE) Urine RBC (0-5) Urine WBC (0-5) Ur Epithelial Cells Amorphous Sediment Urine Bacteria Urine Mucus Urine Opiates Screen (NEGATIVE) Ur Oxycodone Screen (NEGATIVE) Urine Methadone Screen (NEGATIVE) Ur Propoxyphene Screen (NEGATIVE) Ur Barbiturates Screen (NEGATIVE) Ur Tricyclics Screen (NEGATIVE) Ur Phencyclidine Scrn (NEGATIVE) Ur Amphetamine Screen (NEGATIVE) U Methamphetamines Scrn (NEGATIVE) Urine MDMA Screen (NEGATIVE) U Benzodiazepines Scrn (NEGATIVE) U Cocaine Metab Screen (NEGATIVE) U Marijuana (THC) Screen (NEGATIVE) Ethyl Alcohol mg/dL SARS Virus RNA (PCR) (NEGATIVE) 05/19/20 05/20/20 05/20/20 Range/Units 21:52 05:02 05:02 WBC 6.9 (4.5-11.0) K/uL RBC 2.33 L (4.30-5.90) M/uL Hgb 8.8 L D (12.0-15.0) g/dL Hct 26.6 L (40.0-54.0) % MCV 114 H (80-98) fL MCH 38 H (27-31) pg MCHC 33 (32-36) % Plt Count 226 (150-400) K/uL Neut % (Auto) (36-66) % Lymph % (Auto) (24-44) % [place] % (Auto) (2-6) % Eos % (Auto) (2-4) % Baso % (Auto) (0-1) % PT (9.5-12.0) sec INR (0.80-1.20) Sodium 135 L (140-148) mmol/L Potassium 3.6 (3.6-5.2) mmol/L Chloride 102 (100-108) mmol/L Carbon Dioxide 24 (21-32) mmol/L Anion Gap 12.6 (5.0-14.0) mmol/L BUN 26 H (7-18) mg/dL Creatinine 0.8 (0.7-1.3) mg/dL Est Cr Clr Drug Dosing 61.08 mL/min Estimated GFR (MDRD) > 60 (>60) BUN/Creatinine Ratio Glucose 86 (74-106) mg/dL Lactic Acid (0.4-2.0) mmol/L Calcium 8.2 L (8.5-10.1) mg/dL Total Bilirubin (0.2-1.0) mg/dL AST (15-37) U/L ALT (12-78) U/L Alkaline Phosphatase (46-116) U/L Ammonia (11-32) mmol/L Creatine Kinase (39-308) U/L Troponin I (0.000-0.056) ng/mL Total Protein (6.4-8.2) g/dL Albumin (3.4-5.0) g/dL Globulin (2.3-3.5) g/dL Albumin/Globulin Ratio (1.2-2.2) Lipase (73-393) U/L Procalcitonin ng/mL TSH, Ultra Sensitive (0.358-3.740) uIU/mL Urine Color (YELLOW) Urine Appearance (CLEAR) Urine pH (5.0-8.0) Ur Specific [place] (1.008-1.030) Urine Protein (NEGATIVE) mg/dL Urine Glucose (UA) (NEGATIVE) mg/dL Urine Ketones (NEGATIVE) mg/dL Urine Occult Blood (NEGATIVE) Urine Nitrite (NEGATIVE) Urine Bilirubin (NEGATIVE) Urine Urobilinogen (0.2-1.0) EU/dL Ur Leukocyte Esterase (NEGATIVE) Urine RBC (0-5) Urine WBC (0-5) Ur Epithelial Cells Amorphous Sediment Urine Bacteria Urine Mucus Urine Opiates Screen (NEGATIVE) Ur Oxycodone Screen (NEGATIVE) Urine Methadone Screen (NEGATIVE) Ur Propoxyphene Screen (NEGATIVE) Ur Barbiturates Screen (NEGATIVE) Ur Tricyclics Screen (NEGATIVE) Ur Phencyclidine Scrn (NEGATIVE) Ur Amphetamine Screen (NEGATIVE) U Methamphetamines Scrn (NEGATIVE) Urine MDMA Screen (NEGATIVE) U Benzodiazepines Scrn (NEGATIVE) U Cocaine Metab Screen (NEGATIVE) U Marijuana (THC) Screen (NEGATIVE) Ethyl Alcohol mg/dL SARS Virus RNA (PCR) Negative (NEGATIVE) Med Orders - Current: Current Medications Acetaminophen (Tylenol) 650 mg PO Q4H PRN PRN Reason: Pain Last Admin: 05/20/20 08:04 Dose: 650 mg Documented by: Albuterol/Ipratropium (Duoneb 3.0-0.5 Mg/3 Ml) 3 ml NEB Q4H PRN PRN Reason: Dyspnea Diltiazem HCl (Cardizem Cd) 120 mg PO DAILY [facility] Last Admin: 05/20/20 10:46 Dose: 120 mg Documented by: Ferrous Sulfate (Ferrous Sulfate) 325 mg PO BIDMEALS [facility] Last Admin: 05/20/20 09:17 Dose: 325 mg Documented by: Lactated Ringer's (Ringers, Lactated) 1,000 mls @ 999 mls/hr IV BOLUS [facility] Last Admin: 05/19/20 17:18 Dose: 999 mls/hr Documented by: Sodium Chloride (Normal Saline) 1,000 mls @ 75 mls/hr IV ASDIRECTED [facility] Pantoprazole Sodium (Protonix) 40 mg PO DAILY [facility] Last Admin: 05/20/20 10:37 Dose: 40 mg Documented by: Fluticasone/Salmeterol (Fluticasone-Salmeterol 232-14 Mcg Powder Inha) 0 puff INH BIDRT [facility] Last Admin: 05/20/20 09:08 Dose: Not Given Documented by: Sodium Chloride (Saline Flush) 10 ml FLUSH ASDIRECTED PRN PRN Reason: Keep Vein Open Last Admin: 05/19/20 18:09 Dose: 10 ml Documented by: Discontinued Medications Sodium Chloride (Normal Saline) 80 mls @ 3 mls/sec IV ASDIRECTED [facility] Stop: 05/19/20 17:16 Last Admin: 05/19/20 18:09 Dose: 3 mls/sec Documented by: Sodium Chloride (Normal Saline) 1,000 mls @ 125 mls/hr IV ASDIRECTED [facility] Last Admin: 05/20/20 11:36 Dose: 125 mls/hr Documented by: Iopamidol (Isovue-300 (61%)) 100 ml IV . DIRECTED [facility] Stop: 05/19/20 17:16 Last Admin: 05/19/20 18:09 Dose: 100 ml Documented by: Simvastatin (Zocor) 20 mg PO ONETIME ONE Stop: 05/19/20 22:55 Last Admin: 05/20/20 00:16 Dose: Not Given Documented by: Sodium Chloride (Saline Flush) 10 ml FLUSH ONETIME ONE Stop: 05/19/20 17:13 Last Admin: 05/19/20 19:34 Dose: Not Given Documented by: - Exam General: Alert, Cooperative, Moderate Distress. No: Oriented Lungs: Clear to Auscultation, Normal Respiratory Effort Cardiovascular: Regular Rate, Regular Rhythm, No Murmurs GI/Abdominal Exam: Soft, Non-Tender, No Organomegaly, No Distention Extremities: No Pedal Edema, Arm Pain Sepsis Event Note - Evaluation Sepsis Screening Result: No Definite Risk - Focused Exam Vital Signs: Vital Signs Temp Pulse Pulse Resp BP BP Pulse Ox 05/20/20 10:47 97.3 F 59 L 16 178/58 H 99 05/20/20 10:46 59 L 178/58 H 05/20/20 07:51 95.6 F L 76 18 143/59 H 100 05/20/20 03:00 95.3 F L 63 18 128/49 L 98 Date Exam was Performed: 05/20/20 Time Exam was Performed: 13:29 - Problem List Review Problem List Initiated/Reviewed/Updated: Yes - My Orders Last 24 Hours: My Active Orders 05/20/20 13:30 Sodium Chloride 0.9% @ 75 MLS/HR(1000ml) Sodium Chloride 0.9% [Normal Saline] 1,000 ml IV ASDIRECTED 05/21/20 05:00 BASIC METABOLIC PANEL,BMP [CHEM] Timed CBC WITH AUTO DIFF [HEME] Timed 05/21/20 05:11 FOLIC ACID [CHEM] AM VITAMIN B12 [CHEM] AM - Plan Plan:: ASSESSMENT AND PLAN LEFT HUMERUS FRACTURE-as a result of a fall approximately 6 days ago -Orthopedic consult pending CONFUSION AND AGITATION-suspect that he does have some underlying dementia, unable to care for himself at home -shelter placement -PRN Haldol -Melatonin 9 mg p.o. nightly COPD-no evidence of acute exacerbation MAINTENANCE ISSUES -DVT prophylaxis; Lovenox 40 mg subcu daily -GI prophylaxis; not indicated -Valadez catheter; not indicated -Nutrition; regular diet -Nicotine dependence; not required CODE STATUS-FULL CODE ADMISSION STATUS-patient will be admitted to inpatient status, expect at least a 2 night hospital stay for evaluation and management of problems as outlined above. At the time of this admission I do not reasonably expected evaluation and management of this problem will require more than a 96 hour hospital stay. DISPOSITION-anticipate discharge to home after the hospital stay. PRIMARY CARE PROVIDER-he currently does not have a primary care provider
--- NOTE | 2020-05-20 16:13 | PCM.CONS ---
H&P History of Present Illness - General Date of Service: 05/20/20 Admit Problem/Dx: Admission Diagnosis/Problem Admission Diagnosis/Problem Dehydration Source of Information: Family, Provider History Limitations: Reports: Altered Mental Status - History of Present Illness Initial Comments - Free Text/Narative: 79 year old male admitted through the ED last night with confusion, weakness and history of a fall several days ago. The actual fall was unwitnessed. He lives alone and according to his son has been reluctant to accept help or consider assisted living, etc. Son checked on him yesterday and noted limited use of the left arm, confusion etc, and had him brought in. On evaluation in the ED he was found to have a proximal humerus fracture. Onset of Symptoms: Reports: Sudden Location: Reports: Upper Extremity, Left Severity: Moderate Improves with: Reports: Rest Worsens with: Reports: Movement Left Arm Pain Score (Numeric/FACES): 8 - Related Data Allergies/Adverse Reactions: Allergies Allergy/AdvReac Type Severity Reaction Status Date / Time No Known Allergies Allergy Verified 05/19/20 16:39 Home Medications: Home Meds NK [No Known Home Meds] 05/19/20 [History] Past Medical History HEENT History: Reports: Hard of Hearing Cardiovascular History: Reports: Hypertension Respiratory History: Reports: Asthma, COPD Musculoskeletal History: Reports: Fracture - Past Surgical History GI Surgical History: Reports: Hernia Repair/Other Social & Family History - Family History Family Medical History: Unobtainable - Tobacco Use Smoking Status *Q: Current Every Day Smoker Years of Tobacco use: 50 Packs/Tins Daily: 1 Used Tobacco, but Quit: No Second Hand Smoke Exposure: No - Caffeine Use Caffeine Use: Reports: Coffee - Alcohol Use Days Per Week of Alcohol Use: 7 Number of Drinks Per Day: 6 Total Drinks Per Week: 42 Date of Last Drink: 05/19/20 Time of Last Drink: 11:00 - Recreational Drug Use Recreational Drug Use: No - Living Situation & Occupation Living situation: Reports: (Lives alone.) Occupation: Retired H&P Review of Systems - Review of Systems: Review Of Systems: See Below General: Reports: Weakness HEENT: Reports: Other (severe hearing loss) Neurological: Reports: Confusion, Trouble Speaking, Other (facial droop) Exam - Exam Exam: See Below - Vital Signs Vital Signs: Last Vital Signs Temp 36.3 C 07/08/20 10:47 Pulse 59 L 05/20/20 10:47 Resp 16 05/20/20 10:47 BP 178/58 H 05/20/20 10:47 Pulse Ox 99 05/20/20 10:47 Weight: 55.849 kg - Exam Extremities: Limited Range of Motion, Other (pain with passive ROM of left shoulder, bruising and mild swelling down arm and into hand) - Patient Data Lab Results Last 24 hrs: Laboratory Results - last 24 hr 05/19/20 05/19/20 05/19/20 Range/Units 17:12 17:12 17:20 WBC 8.5 (4.5-11.0) K/uL RBC 2.97 L (4.30-5.90) M/uL Hgb 11.4 L D (12.0-15.0) g/dL Hct 34.1 L (40.0-54.0) % MCV 115 H (80-98) fL MCH 38 H (27-31) pg MCHC 33 (32-36) % Plt Count 239 (150-400) K/uL Neut % (Auto) 77 H (36-66) % Lymph % (Auto) 12 L (24-44) % [place] % (Auto) 10 H (2-6) % Eos % (Auto) 0 L (2-4) % Baso % (Auto) 0 (0-1) % PT (9.5-12.0) sec INR (0.80-1.20) Sodium (140-148) mmol/L Potassium (3.6-5.2) mmol/L Chloride (100-108) mmol/L Carbon Dioxide (21-32) mmol/L Anion Gap (5.0-14.0) mmol/L BUN (7-18) mg/dL Creatinine (0.7-1.3) mg/dL Est Cr Clr Drug Dosing mL/min Estimated GFR (MDRD) (>60) BUN/Creatinine Ratio Glucose (74-106) mg/dL Lactic Acid (0.4-2.0) mmol/L Calcium (8.5-10.1) mg/dL Total Bilirubin (0.2-1.0) mg/dL AST (15-37) U/L ALT (12-78) U/L Alkaline Phosphatase (46-116) U/L Ammonia (11-32) mmol/L Creatine Kinase (39-308) U/L Troponin I (0.000-0.056) ng/mL Total Protein (6.4-8.2) g/dL Albumin (3.4-5.0) g/dL Globulin (2.3-3.5) g/dL Albumin/Globulin Ratio (1.2-2.2) Lipase (73-393) U/L Procalcitonin ng/mL TSH, Ultra Sensitive (0.358-3.740) uIU/mL Urine Color (YELLOW) Urine Appearance Clear (CLEAR) Urine pH 6.0 (5.0-8.0) Ur Specific [place] 1.025 (1.008-1.030) Urine Protein 30 H (NEGATIVE) mg/dL Urine Glucose (UA) Negative (NEGATIVE) mg/dL Urine Ketones 15 H (NEGATIVE) mg/dL Urine Occult Blood Trace-intact H (NEGATIVE) Urine Nitrite Negative (NEGATIVE) Urine Bilirubin Small H (NEGATIVE) Urine Urobilinogen 1.0 (0.2-1.0) EU/dL Ur Leukocyte Esterase Negative (NEGATIVE) Urine RBC 0-5 (0-5) Urine WBC 0-5 (0-5) Ur Epithelial Cells Rare Amorphous Sediment Not seen Urine Bacteria Rare Urine Mucus Rare Urine Opiates Screen Negative (NEGATIVE) Ur Oxycodone Screen Negative (NEGATIVE) Urine Methadone Screen Negative (NEGATIVE) Ur Propoxyphene Screen Negative (NEGATIVE) Ur Barbiturates Screen Negative (NEGATIVE) Ur Tricyclics Screen Negative (NEGATIVE) Ur Phencyclidine Scrn Negative (NEGATIVE) Ur Amphetamine Screen Negative (NEGATIVE) U Methamphetamines Scrn Negative (NEGATIVE) Urine MDMA Screen Negative (NEGATIVE) U Benzodiazepines Scrn Negative (NEGATIVE) U Cocaine Metab Screen Negative (NEGATIVE) U Marijuana (THC) Screen Negative (NEGATIVE) Ethyl Alcohol mg/dL SARS Virus RNA (PCR) (NEGATIVE) 05/19/20 05/19/20 05/19/20 Range/Units 17:20 17:20 17:20 WBC (4.5-11.0) K/uL RBC (4.30-5.90) M/uL Hgb (12.0-15.0) g/dL Hct (40.0-54.0) % MCV (80-98) fL MCH (27-31) pg MCHC (32-36) % Plt Count (150-400) K/uL Neut % (Auto) (36-66) % Lymph % (Auto) (24-44) % [place] % (Auto) (2-6) % Eos % (Auto) (2-4) % Baso % (Auto) (0-1) % PT (9.5-12.0) sec INR (0.80-1.20) Sodium 137 L (140-148) mmol/L Potassium 3.8 (3.6-5.2) mmol/L Chloride 99 L (100-108) mmol/L Carbon Dioxide 22 (21-32) mmol/L Anion Gap 19.8 H (5.0-14.0) mmol/L BUN 34 H D (7-18) mg/dL Creatinine 1.0 (0.7-1.3) mg/dL Est Cr Clr Drug Dosing 51.60 mL/min Estimated GFR (MDRD) > 60 (>60) BUN/Creatinine Ratio Not Reportable Glucose 94 (74-106) mg/dL Lactic Acid (0.4-2.0) mmol/L Calcium 9.1 (8.5-10.1) mg/dL Total Bilirubin 1.8 H D (0.2-1.0) mg/dL AST 88 H D (15-37) U/L ALT 81 H (12-78) U/L Alkaline Phosphatase 75 (46-116) U/L Ammonia (11-32) mmol/L Creatine Kinase 968 H (39-308) U/L Troponin I < 0.017 (0.000-0.056) ng/mL Total Protein 6.7 (6.4-8.2) g/dL Albumin 3.3 L (3.4-5.0) g/dL Globulin 3.4 (2.3-3.5) g/dL Albumin/Globulin Ratio 1.0 L (1.2-2.2) Lipase (73-393) U/L Procalcitonin ng/mL TSH, Ultra Sensitive (0.358-3.740) uIU/mL Urine Color (YELLOW) Urine Appearance (CLEAR) Urine pH (5.0-8.0) Ur Specific [place] (1.008-1.030) Urine Protein (NEGATIVE) mg/dL Urine Glucose (UA) (NEGATIVE) mg/dL Urine Ketones (NEGATIVE) mg/dL Urine Occult Blood (NEGATIVE) Urine Nitrite (NEGATIVE) Urine Bilirubin (NEGATIVE) Urine Urobilinogen (0.2-1.0) EU/dL Ur Leukocyte Esterase (NEGATIVE) Urine RBC (0-5) Urine WBC (0-5) Ur Epithelial Cells Amorphous Sediment Urine Bacteria Urine Mucus Urine Opiates Screen (NEGATIVE) Ur Oxycodone Screen (NEGATIVE) Urine Methadone Screen (NEGATIVE) Ur Propoxyphene Screen (NEGATIVE) Ur Barbiturates Screen (NEGATIVE) Ur Tricyclics Screen (NEGATIVE) Ur Phencyclidine Scrn (NEGATIVE) Ur Amphetamine Screen (NEGATIVE) U Methamphetamines Scrn (NEGATIVE) Urine MDMA Screen (NEGATIVE) U Benzodiazepines Scrn (NEGATIVE) U Cocaine Metab Screen (NEGATIVE) U Marijuana (THC) Screen (NEGATIVE) Ethyl Alcohol 64 mg/dL SARS Virus RNA (PCR) (NEGATIVE) 05/19/20 05/19/20 05/19/20 Range/Units 17:20 17:20 17:20 WBC (4.5-11.0) K/uL RBC (4.30-5.90) M/uL Hgb (12.0-15.0) g/dL Hct (40.0-54.0) % MCV (80-98) fL MCH (27-31) pg MCHC (32-36) % Plt Count (150-400) K/uL Neut % (Auto) (36-66) % Lymph % (Auto) (24-44) % [place] % (Auto) (2-6) % Eos % (Auto) (2-4) % Baso % (Auto) (0-1) % PT (9.5-12.0) sec INR (0.80-1.20) Sodium (140-148) mmol/L Potassium (3.6-5.2) mmol/L Chloride (100-108) mmol/L Carbon Dioxide (21-32) mmol/L Anion Gap (5.0-14.0) mmol/L BUN (7-18) mg/dL Creatinine (0.7-1.3) mg/dL Est Cr Clr Drug Dosing mL/min Estimated GFR (MDRD) (>60) BUN/Creatinine Ratio Glucose (74-106) mg/dL Lactic Acid 4.4 H (0.4-2.0) mmol/L Calcium (8.5-10.1) mg/dL Total Bilirubin (0.2-1.0) mg/dL AST (15-37) U/L ALT (12-78) U/L Alkaline Phosphatase (46-116) U/L Ammonia (11-32) mmol/L Creatine Kinase (39-308) U/L Troponin I (0.000-0.056) ng/mL Total Protein (6.4-8.2) g/dL Albumin (3.4-5.0) g/dL Globulin (2.3-3.5) g/dL Albumin/Globulin Ratio (1.2-2.2) Lipase 265 (73-393) U/L Procalcitonin 0.27 ng/mL TSH, Ultra Sensitive (0.358-3.740) uIU/mL Urine Color (YELLOW) Urine Appearance (CLEAR) Urine pH (5.0-8.0) Ur Specific [place] (1.008-1.030) Urine Protein (NEGATIVE) mg/dL Urine Glucose (UA) (NEGATIVE) mg/dL Urine Ketones (NEGATIVE) mg/dL Urine Occult Blood (NEGATIVE) Urine Nitrite (NEGATIVE) Urine Bilirubin (NEGATIVE) Urine Urobilinogen (0.2-1.0) EU/dL Ur Leukocyte Esterase (NEGATIVE) Urine RBC (0-5) Urine WBC (0-5) Ur Epithelial Cells Amorphous Sediment Urine Bacteria Urine Mucus Urine Opiates Screen (NEGATIVE) Ur Oxycodone Screen (NEGATIVE) Urine Methadone Screen (NEGATIVE) Ur Propoxyphene Screen (NEGATIVE) Ur Barbiturates Screen (NEGATIVE) Ur Tricyclics Screen (NEGATIVE) Ur Phencyclidine Scrn (NEGATIVE) Ur Amphetamine Screen (NEGATIVE) U Methamphetamines Scrn (NEGATIVE) Urine MDMA Screen (NEGATIVE) U Benzodiazepines Scrn (NEGATIVE) U Cocaine Metab Screen (NEGATIVE) U Marijuana (THC) Screen (NEGATIVE) Ethyl Alcohol mg/dL SARS Virus RNA (PCR) (NEGATIVE) 05/19/20 05/19/20 05/19/20 Range/Units 17:20 18:00 18:14 WBC (4.5-11.0) K/uL RBC (4.30-5.90) M/uL Hgb (12.0-15.0) g/dL Hct (40.0-54.0) % MCV (80-98) fL MCH (27-31) pg MCHC (32-36) % Plt Count (150-400) K/uL Neut % (Auto) (36-66) % Lymph % (Auto) (24-44) % [place] % (Auto) (2-6) % Eos % (Auto) (2-4) % Baso % (Auto) (0-1) % PT 10.1 (9.5-12.0) sec INR 0.93 (0.80-1.20) Sodium (140-148) mmol/L Potassium (3.6-5.2) mmol/L Chloride (100-108) mmol/L Carbon Dioxide (21-32) mmol/L Anion Gap (5.0-14.0) mmol/L BUN (7-18) mg/dL Creatinine (0.7-1.3) mg/dL Est Cr Clr Drug Dosing mL/min Estimated GFR (MDRD) (>60) BUN/Creatinine Ratio Glucose (74-106) mg/dL Lactic Acid (0.4-2.0) mmol/L Calcium (8.5-10.1) mg/dL Total Bilirubin (0.2-1.0) mg/dL AST (15-37) U/L ALT (12-78) U/L Alkaline Phosphatase (46-116) U/L Ammonia < 10 L (11-32) mmol/L Creatine Kinase (39-308) U/L Troponin I (0.000-0.056) ng/mL Total Protein (6.4-8.2) g/dL Albumin (3.4-5.0) g/dL Globulin (2.3-3.5) g/dL Albumin/Globulin Ratio (1.2-2.2) Lipase (73-393) U/L Procalcitonin ng/mL TSH, Ultra Sensitive 2.219 (0.358-3.740) uIU/mL Urine Color (YELLOW) Urine Appearance (CLEAR) Urine pH (5.0-8.0) Ur Specific [place] (1.008-1.030) Urine Protein (NEGATIVE) mg/dL Urine Glucose (UA) (NEGATIVE) mg/dL Urine Ketones (NEGATIVE) mg/dL Urine Occult Blood (NEGATIVE) Urine Nitrite (NEGATIVE) Urine Bilirubin (NEGATIVE) Urine Urobilinogen (0.2-1.0) EU/dL Ur Leukocyte Esterase (NEGATIVE) Urine RBC (0-5) Urine WBC (0-5) Ur Epithelial Cells Amorphous Sediment Urine Bacteria Urine Mucus Urine Opiates Screen (NEGATIVE) Ur Oxycodone Screen (NEGATIVE) Urine Methadone Screen (NEGATIVE) Ur Propoxyphene Screen (NEGATIVE) Ur Barbiturates Screen (NEGATIVE) Ur Tricyclics Screen (NEGATIVE) Ur Phencyclidine Scrn (NEGATIVE) Ur Amphetamine Screen (NEGATIVE) U Methamphetamines Scrn (NEGATIVE) Urine MDMA Screen (NEGATIVE) U Benzodiazepines Scrn (NEGATIVE) U Cocaine Metab Screen (NEGATIVE) U Marijuana (THC) Screen (NEGATIVE) Ethyl Alcohol mg/dL SARS Virus RNA (PCR) (NEGATIVE) 05/19/20 05/20/20 05/20/20 Range/Units 21:52 05:02 05:02 WBC 6.9 (4.5-11.0) K/uL RBC 2.33 L (4.30-5.90) M/uL Hgb 8.8 L D (12.0-15.0) g/dL Hct 26.6 L (40.0-54.0) % MCV 114 H (80-98) fL MCH 38 H (27-31) pg MCHC 33 (32-36) % Plt Count 226 (150-400) K/uL Neut % (Auto) (36-66) % Lymph % (Auto) (24-44) % [place] % (Auto) (2-6) % Eos % (Auto) (2-4) % Baso % (Auto) (0-1) % PT (9.5-12.0) sec INR (0.80-1.20) Sodium 135 L (140-148) mmol/L Potassium 3.6 (3.6-5.2) mmol/L Chloride 102 (100-108) mmol/L Carbon Dioxide 24 (21-32) mmol/L Anion Gap 12.6 (5.0-14.0) mmol/L BUN 26 H (7-18) mg/dL Creatinine 0.8 (0.7-1.3) mg/dL Est Cr Clr Drug Dosing 61.08 mL/min Estimated GFR (MDRD) > 60 (>60) BUN/Creatinine Ratio Glucose 86 (74-106) mg/dL Lactic Acid (0.4-2.0) mmol/L Calcium 8.2 L (8.5-10.1) mg/dL Total Bilirubin (0.2-1.0) mg/dL AST (15-37) U/L ALT (12-78) U/L Alkaline Phosphatase (46-116) U/L Ammonia (11-32) mmol/L Creatine Kinase (39-308) U/L Troponin I (0.000-0.056) ng/mL Total Protein (6.4-8.2) g/dL Albumin (3.4-5.0) g/dL Globulin (2.3-3.5) g/dL Albumin/Globulin Ratio (1.2-2.2) Lipase (73-393) U/L Procalcitonin ng/mL TSH, Ultra Sensitive (0.358-3.740) uIU/mL Urine Color (YELLOW) Urine Appearance (CLEAR) Urine pH (5.0-8.0) Ur Specific [place] (1.008-1.030) Urine Protein (NEGATIVE) mg/dL Urine Glucose (UA) (NEGATIVE) mg/dL Urine Ketones (NEGATIVE) mg/dL Urine Occult Blood (NEGATIVE) Urine Nitrite (NEGATIVE) Urine Bilirubin (NEGATIVE) Urine Urobilinogen (0.2-1.0) EU/dL Ur Leukocyte Esterase (NEGATIVE) Urine RBC (0-5) Urine WBC (0-5) Ur Epithelial Cells Amorphous Sediment Urine Bacteria Urine Mucus Urine Opiates Screen (NEGATIVE) Ur Oxycodone Screen (NEGATIVE) Urine Methadone Screen (NEGATIVE) Ur Propoxyphene Screen (NEGATIVE) Ur Barbiturates Screen (NEGATIVE) Ur Tricyclics Screen (NEGATIVE) Ur Phencyclidine Scrn (NEGATIVE) Ur Amphetamine Screen (NEGATIVE) U Methamphetamines Scrn (NEGATIVE) Urine MDMA Screen (NEGATIVE) U Benzodiazepines Scrn (NEGATIVE) U Cocaine Metab Screen (NEGATIVE) U Marijuana (THC) Screen (NEGATIVE) Ethyl Alcohol mg/dL SARS Virus RNA (PCR) Negative (NEGATIVE) Result Diagrams: 05/20/20 05:02 05/20/20 05:02 Sepsis Event Note - Evaluation Sepsis Screening Result: No Definite Risk - Focused Exam Vital Signs: Vital Signs Temp Pulse Pulse Resp BP BP Pulse Ox 05/20/20 10:47 36.3 C 59 L 16 178/58 H 99 05/20/20 10:46 59 L 178/58 H 05/20/20 07:51 35.3 C L 76 18 143/59 H 100 Date Exam was Performed: 05/20/20 Time Exam was Performed: 16:06 Consult PN Assessment/Plan Procedures: Procedures CHEST X-RAY 2VW FRONTAL&LATL (03/23/15) COMPLETE CBC AUTOMATED (03/23/15) COMPREHEN METABOLIC PANEL (03/23/15) CT THORAX W/DYE (09/22/15) ELECTROCARDIOGRAM TRACING (03/23/15) PRP I/KARLA INIT REDUC >5 YR (03/23/15) REMOVAL OF HYDROCELE (03/23/15) REMOVE EPIDIDYMIS LESION (03/23/15) ROUTINE VENIPUNCTURE (03/23/15) (1) Humeral fracture SNOMED Code(s): 26276233 Code(s): S42.309A - UNSP FRACTURE OF SHAFT OF HUMERUS, UNSP ARM, INIT Current Visit: Yes Qualifiers: Encounter type: initial encounter Humerus Location: surgical neck Fracture type: closed Fracture alignment: displaced Laterality: left Assessment:: Severely displaced humeral neck fracture. Under ideal circumstances this would be treated surgically either with attempt at ORIF or reconstruction with a hemiarthroplasty. If left as is he will have very limited use of the left arm and will not be able to reach away from his body. He will be able to use his hand at waist level. This was discussed with the patient and his son. Patient does not wish surgery at this time. Problem List Initiated/Reviewed/Updated: Yes Plan: The left arm can be treated in a sling that can be removed as needed. OT/PT can work with him for strengthening and ADLs. If his medical condition improves and he finds the arm to be too painful or dysfunctional surgery can be considered in the future. Will initiate OT for arm.
[2020-05-20] MEDS ORDERED: Ondansetron 4 MG/2 ML SDV IVPUSH PRN (20:37)
[2020-05-20] MEDS: Morphine 2 MG/ML SYRINGE IVPUSH PRN (21:05)
[2020-05-20] MEDS: Melatonin 3 MG Tab PO SCH (21:22)
--- NOTE | 2020-05-20 21:58 | PCM.SN.2 ---
- Free Text/Narrative Note: call from [address] [place] [address] at 2028 request for pain medication. Mr. Sharpe is unable to tolerate swallowing liquids, would like IV medication ordered O: left fracture humerus A: pain P: Morphine 2 mg IVP every 2 hours as needed for pain control Zofran 4 mg IVP every 4 hours as needed for nausea. continue present plan of care.
[2020-05-21] MEDS ORDERED: Potassium Chloride Riders 40 MEQ in Premix Bag 1 BAG IV ONE ×2 (08:16→12:44)
[2020-05-21] MEDS: Fluticasone-Salmeterol 232-14 MCG Powder Inhalent INH SCH ×2 (08:30→20:51)
[2020-05-21] MEDS: Pantoprazole 40 MG Tab.CR PO SCH (08:46)
[2020-05-21] MEDS: Ferrous Sulfate 325 MG Tab PO SCH ×2 (08:50→17:05)
[2020-05-21] MEDS: Diltiazem 120 MG Cap.CD PO SCH (08:51)
[2020-05-21] MEDS: Folic Acid 1 MG Tab PO SCH (08:51)
[2020-05-21] MEDS ORDERED: Potassium Chloride 20 MEQ Tab.ER PO ONE (09:00)
--- NOTE | 2020-05-21 09:43 | CR ---
Humerus Lt, Forearm 2V Lt CLINICAL HISTORY: Fall FINDINGS: There is a candidate displaced fracture of the subcapital region of the humerus extending into the proximal humeral shaft. There is rotation of the humeral head. 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 The no acute fracture is identified. There is a large olecranon spur. There is some minimal irregularity at the radial head which is felt to be degenerative. 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
[2020-05-21] MEDS: Morphine 2 MG/ML SYRINGE IVPUSH PRN (10:32)
[2020-05-21] MEDS ORDERED: Enoxaparin 40 MG/0.4 ML Syringe SUBCUT SCH (11:00)
[2020-05-21] MEDS ORDERED: Gadoteridol 279.3 MG/ML 15 ML SDV IV SCH (11:00)
[2020-05-21] MEDS: Potassium Chloride 20 MEQ, Lidocaine 1% 2 ML in Sodium Chloride 0.9% 100 ML IV SCH ×4 (12:45→19:22)
--- NOTE | 2020-05-21 12:52 | PCM.PN ---
- General Info Date of Service: 05/21/20 Subjective Update: Mr. 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 We did attempt to obtain MRI today but this was unsuccessful on 2 occasions because of motion. Mr. Sharpe has decided not to pursue surgical intervention for repair of his left proximal humerus fracture. He is unable to meaningfully participate in a conversation at this time about ongoing care. This is secondary to confusion as well as some a aphasia. - Patient Data Vitals - Most Recent: Last Vital Signs Temp 95.8 F L 05/21/20 07:00 Pulse 59 L 05/21/20 08:51 Resp 14 05/21/20 07:00 BP 137/49 L 05/21/20 08:51 Pulse Ox 99 05/21/20 07:00 Weight - Most Recent: 123 lb 2.015 oz I&O - Last 24 Hours: Intake & Output 05/20/20 05/21/20 05/21/20 22:59 06:59 14:59 Intake Total 1167 Output Total 525 150 Balance -525 1017 Lab Results Last 24 Hours: Laboratory Results - last 24 hr 05/21/20 05/21/20 05/21/20 Range/Units 04:45 04:45 05:11 WBC 6.0 (4.5-11.0) K/uL RBC 2.15 L (4.30-5.90) M/uL Hgb 8.1 L (12.0-15.0) g/dL Hct 25.0 L (40.0-54.0) % MCV 116 H (80-98) fL MCH 38 H (27-31) pg MCHC 32 (32-36) % Plt Count 220 (150-400) K/uL Neut % (Auto) 66 (36-66) % Lymph % (Auto) 20 L (24-44) % [place] % (Auto) 13 H (2-6) % Eos % (Auto) 1 L (2-4) % Baso % (Auto) 0 (0-1) % Sodium 141 (140-148) mmol/L Potassium 3.1 L (3.6-5.2) mmol/L Chloride 107 (100-108) mmol/L Carbon Dioxide 26 (21-32) mmol/L Anion Gap 11.1 (5.0-14.0) mmol/L BUN 16 (7-18) mg/dL Creatinine 0.8 (0.8-1.3) mg/dL Est Cr Clr Drug Dosing 61.08 mL/min Estimated GFR (MDRD) > 60 (>60) Glucose 100 (74-106) mg/dL Calcium 7.9 L (8.5-10.1) mg/dL Vitamin B12 362 (193-986) pg/ml Folate 7.8 L (8.6-58.9) ng/ml Med Orders - Current: Current Medications Acetaminophen (Tylenol) 650 mg PO Q4H PRN PRN Reason: Pain Last Admin: 05/20/20 08:04 Dose: 650 mg Documented by: Albuterol/Ipratropium (Duoneb 3.0-0.5 Mg/3 Ml) 3 ml NEB Q4H PRN PRN Reason: Dyspnea Diltiazem HCl (Cardizem Cd) 120 mg PO DAILY [facility] Last Admin: 05/21/20 08:51 Dose: 120 mg Documented by: Enoxaparin Sodium (Lovenox) 40 mg SUBCUT DAILY [facility] Last Admin: 05/21/20 12:45 Dose: 40 mg Documented by: Ferrous Sulfate (Ferrous Sulfate) 325 mg PO BIDMEALS [facility] Last Admin: 05/21/20 08:50 Dose: 325 mg Documented by: Folic Acid (Folic Acid) 1 mg PO DAILY [facility] Last Admin: 05/21/20 08:51 Dose: 1 mg Documented by: Haloperidol (Haldol) 1 mg PO Q2H PRN PRN Reason: Agitation Sodium Chloride (Normal Saline) 1,000 mls @ 75 mls/hr IV ASDIRECTED [facility] Last Admin: 05/21/20 00:56 Dose: 75 mls/hr Documented by: Potassium Chloride 20 meq/Lidocaine HCl 2 ml/ Sodium Chloride 112 mls @ 56 mls/hr IV Q2H [facility] Stop: 05/21/20 13:29 Last Admin: 05/21/20 12:45 Dose: 56 mls/hr Documented by: Potassium Chloride 40 meq/ (Premix) 100 mls @ 25 mls/hr IV ONETIME ONE Stop: 05/21/20 16:43 Melatonin (Melatonin) 9 mg PO BEDTIME [facility] Last Admin: 05/20/20 21:22 Dose: Not Given Documented by: Morphine Sulfate (Morphine) 2 mg IVPUSH Q2H PRN PRN Reason: Pain (moderate 4-6) Last Admin: 05/21/20 10:32 Dose: 2 mg Documented by: Ondansetron HCl (Zofran) 4 mg IVPUSH Q4H PRN PRN Reason: Nausea/Vomiting Last Admin: 05/20/20 21:06 Dose: 4 mg Documented by: Pantoprazole Sodium (Protonix) 40 mg PO ACBREAKFAST [facility] Fluticasone/Salmeterol (Fluticasone-Salmeterol 232-14 Mcg Powder Inha) 0 puff INH BIDRT [facility] Last Admin: 05/21/20 08:30 Dose: 1 puff Documented by: Sodium Chloride (Saline Flush) 10 ml FLUSH ASDIRECTED PRN PRN Reason: Keep Vein Open Last Admin: 05/19/20 18:09 Dose: 10 ml Documented by: Discontinued Medications Gadoteridol (Prohance) 15 ml IV .A DIRECTED [facility] Stop: 05/21/20 11:01 Lactated Ringer's (Ringers, Lactated) 1,000 mls @ 999 mls/hr IV BOLUS [facility] Last Admin: 05/19/20 17:18 Dose: 999 mls/hr Documented by: Sodium Chloride (Normal Saline) 80 mls @ 3 mls/sec IV ASDIRECTED [facility] Stop: 05/19/20 17:16 Last Admin: 05/19/20 18:09 Dose: 3 mls/sec Documented by: Sodium Chloride (Normal Saline) 1,000 mls @ 125 mls/hr IV ASDIRECTED [facility] Last Admin: 05/20/20 11:36 Dose: 125 mls/hr Documented by: Iopamidol (Isovue-300 (61%)) 100 ml IV . DIRECTED [facility] Stop: 05/19/20 17:16 Last Admin: 05/19/20 18:09 Dose: 100 ml Documented by: Pantoprazole Sodium (Protonix) 40 mg PO DAILY [facility] Last Admin: 05/21/20 08:46 Dose: 40 mg Documented by: Potassium Chloride (Klor-Con M20) 40 meq PO ONETIME ONE Stop: 05/21/20 09:01 Last Admin: 05/21/20 08:50 Dose: 40 meq Documented by: Simvastatin (Zocor) 20 mg PO ONETIME ONE Stop: 05/19/20 22:55 Last Admin: 05/20/20 00:16 Dose: Not Given Documented by: Sodium Chloride (Saline Flush) 10 ml FLUSH ONETIME ONE Stop: 05/19/20 17:13 Last Admin: 05/19/20 19:34 Dose: Not Given Documented by: - Exam Quality Assessment: DVT Prophylaxis General: Alert, Cooperative, Moderate Distress. No: Oriented Lungs: Clear to Auscultation, Normal Respiratory Effort Cardiovascular: Regular Rate, Regular Rhythm, No Murmurs GI/Abdominal Exam: Soft, Non-Tender, No Organomegaly, No Distention Extremities: Arm Pain Sepsis Event Note - Evaluation Sepsis Screening Result: No Definite Risk - Focused Exam Vital Signs: Vital Signs Temp Pulse Pulse Resp BP BP Pulse Ox 05/21/20 08:51 59 L 137/49 L 05/21/20 07:00 95.8 F L 59 L 14 137/49 L 99 05/21/20 03:45 96.7 F L 82 18 142/53 H 95 Date Exam was Performed: 05/21/20 Time Exam was Performed: 12:48 - Problem List Review Problem List Initiated/Reviewed/Updated: Yes - My Orders Last 24 Hours: My Active Orders 05/20/20 13:30 Sodium Chloride 0.9% [Normal Saline] 1,000 ml IV ASDIRECTED 05/20/20 13:34 CLINICAL PHARMACY TECHNICIAN Evaluation and Treatment [CONS] Routine haloperidoL [Haldol] 1 mg PO Q2H PRN 05/20/20 21:00 Melatonin 9 mg PO BEDTIME 05/21/20 08:29 Brain w wo Cont [MR] Urgent 05/21/20 09:00 Folic Acid 1 mg PO DAILY 05/21/20 09:30 Potassium Chloride 20 meq Lidocaine 1% [Xylocaine 1%] 2 ml Sodium Chloride 0.9% [Normal Saline] 100 ml IV Q2H 05/21/20 11:00 Enoxaparin [Lovenox] 40 mg SUBCUT DAILY 05/21/20 12:44 Potassium Chloride Riders [KCL 40 MEQ in Water 100 ML] 40 meq Premix Bag 1 bag IV ONETIME 05/22/20 05:11 POTASSIUM,K [CHEM] AM - Plan Plan:: ASSESSMENT AND PLAN LEFT HUMERUS FRACTURE-as a result of a fall approximately 6 days ago. Family has decided not to pursue surgical intervention -Orthopedic consult pending CONFUSION AND AGITATION-suspect that he does have some underlying dementia, unable to care for himself at home -long-term placement -PRN Haldol -Melatonin 9 mg p.o. nightly COPD-no evidence of acute exacerbation ACUTE CVA-left facial weakness, aphasia, swallowing difficulty, left-sided weakness unable to get an MRI because of motion artifact. He has been seen by speech pathology and they have recommended regular diet with honey thickened liquids. -We will discuss further with family, consider comfort cares only MAINTENANCE ISSUES -DVT prophylaxis; Lovenox 40 mg subcu daily -GI prophylaxis; not indicated -Valadez catheter; not indicated -Nutrition; regular diet -Nicotine dependence; not required CODE STATUS-FULL CODE ADMISSION STATUS-patient will be admitted to inpatient status, expect at least a 2 night hospital stay for evaluation and management of problems as outlined above. At the time of this admission I do not reasonably expected evaluation and management of this problem will require more than a 96 hour hospital stay. DISPOSITION-anticipate discharge to home after the hospital stay. PRIMARY CARE PROVIDER-he currently does not have a primary care provider
[2020-05-21] MEDS: Polyethylene Glycol 3350 Powder 17 GM Packet PO PRN (18:21)
[2020-05-21] MEDS: oxyCODONE 5 MG Tab PO PRN (18:21)
[2020-05-21] MEDS ORDERED: Bisacodyl 10 MG Supp RECTAL ONE (20:30)
[2020-05-21] MEDS: Melatonin 3 MG Tab PO SCH (20:51)
[2020-05-22] MEDS: oxyCODONE 5 MG Tab PO PRN ×2 (01:05→10:38)
[2020-05-22] MEDS ORDERED: Pantoprazole 40 MG Tab.CR PO SCH (07:30)
[2020-05-22] MEDS: Fluticasone-Salmeterol 232-14 MCG Powder Inhalent INH SCH (07:47)
[2020-05-22] MEDS: Ferrous Sulfate 325 MG Tab PO SCH (09:00)
[2020-05-22] MEDS: Folic Acid 1 MG Tab PO SCH (09:01)
[2020-05-22] MEDS: Diltiazem 120 MG Cap.CD PO SCH (09:01)
[2020-05-22] MEDS ORDERED: Bisacodyl 10 MG Supp RECTAL ONE (10:30)
[2020-05-22] MEDS ORDERED: Sodium Phosphate,Monobasic/Sodium Phosphate,Dibasic Enema 133 ML Bottle RECTAL ONE (10:30)
[2020-05-22] MEDS: Polyethylene Glycol 3350 Powder 17 GM Packet PO PRN (10:38)
[2020-05-22 12:20] VITALS: BP 112/54; PULSE 74
--- NOTE | 2020-05-22 12:52 | PCM.DCSUM1 ---
Discharge Summary - Hospital Course Brief History: Mr. Sharpe is a 79-year-old gentleman who was admitted through the emergency department with severe left arm pain secondary to a humerus fracture. - Discharge Data Discharge Date: 05/22/20 Discharge Disposition: DC/Tfer to SNF 03 Condition: Poor - Referral to Home Health Primary Care Physician: Clark Palm MD - Discharge Diagnosis/Problem(s) (1) Dehydration SNOMED Code(s): 08663709 ICD Code: E86.0 - DEHYDRATION Status: Acute Current Visit: Yes (2) Humeral fracture SNOMED Code(s): 71035956 ICD Code: S42.309A - UNSP FRACTURE OF SHAFT OF HUMERUS, UNSP ARM, INIT Status: Acute Current Visit: Yes Qualifiers: Encounter type: initial encounter Humerus Location: surgical neck Fracture type: closed Fracture alignment: displaced Laterality: left (3) Failure to thrive SNOMED Code(s): 75626069 ICD Code: [id number] - Status: Acute Current Visit: Yes (4) Trauma SNOMED Code(s): 361577302 ICD Code: T14.90XA - INJURY, UNSPECIFIED, INITIAL ENCOUNTER Status: Acute Current Visit: Yes (5) COPD (chronic obstructive pulmonary disease) SNOMED Code(s): 94033705 ICD Code: J44.9 - CHRONIC OBSTRUCTIVE PULMONARY DISEASE, UNSPECIFIED Status: Chronic Current Visit: No (6) Acute CVA (cerebrovascular accident) SNOMED Code(s): 734353418, 762446253 ICD Code: I63.9 - CEREBRAL INFARCTION, UNSPECIFIED Status: Acute Current Visit: Yes - Patient Summary/Data Consults: Consultations 05/19/20 21:43 PT Evaluation and Treatment [CONS] Routine Please Evaluate and Treat. PT Reason for Consult: weakness with falls, do not address left humeral fx at present This query below is only for informational purposes and is not editable. Admission Diagnosis/Problem: Dehydration 05/20/20 13:34 [facility] Evaluation and Treatment [CONS] Routine Please Evaluate and Treat [facility] Reason for Consult: Please evaluate swallowing This query below is only for informational purposes and is not editable. Admission Diagnosis/Problem: Dehydration 05/20/20 16:31 Consult to Occupational Therapy [OT Evaluation and Treatment] [CONS] Routine Please Evaluate and Treat. OT Reason for Consult: Strengthening Special Instructions: ROM and strengthening of left hand/wrist/elbow, no active or passive ROM of left shoulder This query below is only for informational purposes and is not editable. Admission Diagnosis/Problem: Dehydration 05/20/20 21:43 Consult to Orthopedics [CONS] Routine Consulting Provider: Turner Shaikh Courtmanda Call Completed to Consulting Physician: No Reason for Consult: proximal left humeral fx with displacement Special Instructions: may see as routine consult on 05/20/20 Hospital Course: Mr. Sharpe is a 79-year-old gentleman who was admitted through the emergency department with profound weakness and pain in his left arm secondary to a humerus fracture. He had fallen at home 4 to 5 days prior to admission and it had severe pain in his left arm since that time. He was also felt to be dehydrated and malnourished. On admission he was given pain medication as well as IV fluids for hydration. On admission he was noted to be more confused than usual with evidence of expressive a aphasia and left-sided weakness of the face. CT scan of the head was obtained in the emergency department and showed no acute abnormalities. On the day after admission he was seen and evaluated by Dr. Shaikh for orthopedic consult. He recommended surgical repair of the fracture, which the patient refused. Because of difficulty with swallowing as well as ongoing left-sided facial weakness and expressive a aphasia second CT scan of the head was obtained again showing no acute abnormalities. Following day we did attempt to obtain MRI for further evaluation of probable CVA, this was unsuccessful as the patient was unable to lie still. No further evaluation was entertained concerning the CVA as he was not interested in pursuing further evaluation or management. Speech pathology consult was obtained and they recommended regular diet with honey thickened liquids. He will be discharged to the senior care for restorative physical therapy and Occupational Therapy. If he should change his mind concerning the humerus fracture Dr. Shaikh did report that this could be done in the future. Activity will be as tolerated and he will be on a regular diet with honey thickened liquids. - Patient Instructions Diet: Usual Diet as Tolerated Activity: As Tolerated Other/Special Instructions: Daily physical therapy and occupational therapy while at the senior care - Discharge Plan *PRESCRIPTION DRUG MONITORING PROGRAM REVIEWED*: Not Applicable *COPY OF PRESCRIPTION DRUG MONITORING REPORT IN PATIENT MONIKA: Not Applicable Prescriptions/Med Rec: Aspirin [Aspirin EC] 325 mg PO DAILY #100 tablet.dr Diltiazem [Cardizem CD] 120 mg PO DAILY #30 cap.cd Ferrous Sulfate 325 mg PO BIDMEALS #60 tablet Folic Acid 1 mg PO DAILY #30 tablet oxyCODONE 5 mg PO Q4H PRN #30 tablet PRN Reason: Pain (Moderate 4-6) Pantoprazole [ProTONIX] 40 mg PO ACBREAKFAST #30 tab.cr Acetaminophen [Tylenol] 650 mg PO Q4H PRN #100 tablet PRN Reason: Pain Home Medications: Home Meds Acetaminophen [Tylenol] 650 mg PO Q4H PRN #100 tablet 05/22/20 [Rx] Aspirin [Aspirin EC] 325 mg PO DAILY #100 tablet. 05/22/20 [Rx] Diltiazem [Cardizem CD] 120 mg PO DAILY #30 cap.cd 05/22/20 [Rx] Ferrous Sulfate 325 mg PO BIDMEALS #60 tablet 05/22/20 [Rx] Folic Acid 1 mg PO DAILY #30 tablet 05/22/20 [Rx] Pantoprazole [ProTONIX] 40 mg PO ACBREAKFAST #30 tab.cr 05/22/20 [Rx] oxyCODONE 5 mg PO Q4H PRN #30 tablet 05/22/20 [Rx] Referrals: Clark Palm MD [Primary Care Provider] - - Discharge Summary/Plan Comment DC Time >30 min.: No - Patient Data Vitals - Most Recent: Last Vital Signs Temp 97.7 F 05/22/20 12:19 Pulse 74 05/22/20 12:19 Resp 16 05/22/20 12:19 BP 112/54 L 05/22/20 12:19 Pulse Ox 92 L 05/22/20 12:19 Weight - Most Recent: 123 lb 2.015 oz I&O - Last 24 hours: Intake & Output 05/21/20 05/22/20 05/22/20 22:59 06:59 14:59 Intake Total 1700 330 Output Total 425 475 Balance 1275 -145 Lab Results - Last 24 hrs: Laboratory Results - last 24 hr 05/22/20 Range/Units 04:10 Potassium 4.1 (3.6-5.2) mmol/L Med Orders - Current: Current Medications Acetaminophen (Tylenol) 650 mg PO Q4H PRN PRN Reason: Pain Last Admin: 05/20/20 08:04 Dose: 650 mg Documented by: Albuterol/Ipratropium (Duoneb 3.0-0.5 Mg/3 Ml) 3 ml NEB Q4H PRN PRN Reason: Dyspnea Last Admin: 05/21/20 20:50 Dose: 3 ml Documented by: Diltiazem HCl (Cardizem Cd) 120 mg PO DAILY [facility] Last Admin: 05/22/20 09:01 Dose: 120 mg Documented by: Enoxaparin Sodium (Lovenox) 40 mg SUBCUT Q24H [facility] Ferrous Sulfate (Ferrous Sulfate) 325 mg PO BIDMEALS [facility] Last Admin: 05/22/20 09:00 Dose: 325 mg Documented by: Folic Acid (Folic Acid) 1 mg PO DAILY [facility] Last Admin: 05/22/20 09:01 Dose: 1 mg Documented by: Haloperidol (Haldol) 1 mg PO Q2H PRN PRN Reason: Agitation Melatonin (Melatonin) 9 mg PO BEDTIME [facility] Last Admin: 05/21/20 20:51 Dose: 9 mg Documented by: Morphine Sulfate (Morphine) 2 mg IVPUSH Q2H PRN PRN Reason: Pain (moderate 4-6) Last Admin: 05/21/20 10:32 Dose: 2 mg Documented by: Ondansetron HCl (Zofran) 4 mg IVPUSH Q4H PRN PRN Reason: Nausea/Vomiting Last Admin: 05/20/20 21:06 Dose: 4 mg Documented by: Oxycodone HCl (Oxycodone) 5 mg PO Q4H PRN PRN Reason: Pain (moderate 4-6) Last Admin: 05/22/20 10:38 Dose: 5 mg Documented by: Pantoprazole Sodium (Protonix) 40 mg PO ACBREAKFAST [facility] Last Admin: 05/22/20 09:00 Dose: 40 mg Documented by: Polyethylene Glycol (Miralax) 17 gm PO BID PRN PRN Reason: Constipation Last Admin: 05/22/20 10:38 Dose: 17 gm Documented by: Fluticasone/Salmeterol (Fluticasone-Salmeterol 232-14 Mcg Powder Inha) 0 puff INH BIDRT [facility] Last Admin: 05/22/20 07:47 Dose: 1 puff Documented by: Sodium Chloride (Saline Flush) 10 ml FLUSH ASDIRECTED PRN PRN Reason: Keep Vein Open Last Admin: 05/19/20 18:09 Dose: 10 ml Documented by: Discontinued Medications Bisacodyl (Dulcolax) 10 mg RECTAL ONETIME ONE Stop: 05/21/20 20:31 Last Admin: 05/21/20 20:50 Dose: 10 mg Documented by: Bisacodyl (Dulcolax) 10 mg RECTAL ONETIME ONE Stop: 05/22/20 10:31 Enoxaparin Sodium (Lovenox) 40 mg SUBCUT DAILY [facility] Last Admin: 05/21/20 12:45 Dose: 40 mg Documented by: Gadoteridol (Prohance) 15 ml IV .A DIRECTED [facility] Stop: 05/21/20 11:01 Lactated Ringer's (Ringers, Lactated) 1,000 mls @ 999 mls/hr IV BOLUS [facility] Last Admin: 05/19/20 17:18 Dose: 999 mls/hr Documented by: Sodium Chloride (Normal Saline) 80 mls @ 3 mls/sec IV ASDIRECTED [facility] Stop: 05/19/20 17:16 Last Admin: 05/19/20 18:09 Dose: 3 mls/sec Documented by: Sodium Chloride (Normal Saline) 1,000 mls @ 125 mls/hr IV ASDIRECTED [facility] Last Admin: 05/20/20 11:36 Dose: 125 mls/hr Documented by: Sodium Chloride (Normal Saline) 1,000 mls @ 75 mls/hr IV ASDIRECTED [facility] Last Admin: 05/21/20 00:56 Dose: 75 mls/hr Documented by: Potassium Chloride 20 meq/Lidocaine HCl 2 ml/ Sodium Chloride 112 mls @ 56 mls/hr IV Q2H [facility] Stop: 05/21/20 13:29 Last Admin: 05/21/20 15:06 Dose: 56 mls/hr Documented by: Potassium Chloride 20 meq/Lidocaine HCl 2 ml/ Sodium Chloride 112 mls @ 56 mls/hr IV Q2H [facility] Stop: 05/21/20 21:29 Last Admin: 05/21/20 19:22 Dose: 56 mls/hr Documented by: Iopamidol (Isovue-300 (61%)) 100 ml IV . DIRECTED [facility] Stop: 05/19/20 17:16 Last Admin: 07/07/20 18:09 Dose: 100 ml Documented by: Pantoprazole Sodium (Protonix) 40 mg PO DAILY [facility] Last Admin: 05/21/20 08:46 Dose: 40 mg Documented by: Potassium Chloride (Klor-Con M20) 40 meq PO ONETIME ONE Stop: 05/21/20 09:01 Last Admin: 05/21/20 08:50 Dose: 40 meq Documented by: Simvastatin (Zocor) 20 mg PO ONETIME ONE Stop: 05/19/20 22:55 Last Admin: 05/20/20 00:16 Dose: Not Given Documented by: Sodium Biphosphate/Sodium Phosphate (Fleet Enema) 133 ml RECTAL ONETIME ONE Stop: 05/22/20 10:31 Sodium Chloride (Saline Flush) 10 ml FLUSH ONETIME ONE Stop: 05/19/20 17:13 Last Admin: 05/19/20 19:34 Dose: Not Given Documented by: - Exam Quality Assessment: Reports: DVT Prophylaxis General: Reports: Alert, Cooperative, Mild Distress. Denies: Oriented Lungs: Reports: Clear to Auscultation, Normal Respiratory Effort Cardiovascular: Reports: Regular Rate, Regular Rhythm, No Murmurs GI/Abdominal Exam: Soft, Non-Tender, No Organomegaly, No Distention Extremities: Arm Pain
[2020-05-22] MEDS ORDERED: Enoxaparin 40 MG/0.4 ML Syringe SUBCUT SCH (13:00)
== END 2020-05-22 14:10 | DRG 562 ==
LOC: JP.ED 16:30 → JP.MS 20:54 → OBSVTOIN 20:54
PROVIDERS: ADMIT Family Medicine; ATTEND Hospitalist
DX: S42.202A Unspecified fracture of upper end of left humerus, initial encounter for closed fracture (principal); S42.212A Unspecified displaced fracture of surgical neck of left humerus, initial encounter for closed fracture; R53.1 Weakness; F10.10 Alcohol abuse, uncomplicated; Y90.9 Presence of alcohol in blood, level not specified; R41.0 Disorientation, unspecified; I63.9 Cerebral infarction, unspecified; E46 Unspecified protein-calorie malnutrition; H91.93 Unspecified hearing loss, bilateral; E87.2 Acidosis; R47.01 Aphasia; G81.94 Hemiplegia, unspecified affecting left nondominant side; Z68.1 Body mass index [BMI] 19.9 or less, adult; Z20.828 Contact with and (suspected) exposure to other viral communicable diseases; E86.0 Dehydration; R62.7 Adult failure to thrive; J44.9 Chronic obstructive pulmonary disease, unspecified; H91.90 Unspecified hearing loss, unspecified ear; F17.200 Nicotine dependence, unspecified, uncomplicated; F03.90 Unspecified dementia, unspecified severity, without behavioral disturbance, psychotic disturbance, mood disturbance, and anxiety; Z51.5 Encounter for palliative care; I10 Essential (primary) hypertension; W19.XXXA Unspecified fall, initial encounter
CPT/HCPCS: 36415; 70450; 71260; 73060 ×2; 73090 ×2; 74177; 80053; 80305; 80307; 81001; 82140; 82550; 83605; 83690; 84145; 84443; 84484; 85025; 85610; 93005; 93010; 96360; 96361; 99285; J7050; J7120; Q9967; 80048; 82607; 82746; 84132; 85027; 92526-GN; 92610-GN; 94640; 97110-GO; 97163-GP; 97166-GO; 97530-GP; A9270-GY; G0378; J1650; J2001; J2270; J2405; J3480; J7030; J7620-GY; U0002